=== PATIENT | female | born 1940 | race Caucasian/White ===

== ENCOUNTER 2022-02-19 12:57 | Outpatient (CLI) | payer MEDICARE, SELFPAY | END 2022-02-19 12:58 | disposition home or self-care (01) | LOC: ANHAUDIO 12:59 | PROVIDERS: PCP Internal Medicine; Visit Provider Otolaryngology | DX: H91.90 Unspecified hearing loss, unspecified ear (principal) | CPT/HCPCS: 92557; 92567 ==

== ENCOUNTER 2022-08-17 09:50 | Emergency (ER) | payer MEDICARE, SELFPAY ==
[2022-08-17 09:56] VITALS: BP 154/58; PULSE 72; RESP 18; TEMP 36.1; O2SAT 100
[2022-08-17 10:21] VITALS: BP 157/81; PULSE 73; RESP 20; O2SAT 99
--- NOTE | 2022-08-17 10:25 | ED.BACK ---
HPI - Back Pain/Injury General Chief Complaint: Back Pain/Injury Stated Complaint: back pain/injury Time Seen by Provider: 08/17/22 10:03 History of Present Illness HPI Narrative: Patient is an 82-year-old female here for evaluation of acute on chronic low back pain. Patient tells me that she has dealt with sciatica over the past 10 years. She has had an L4/L5 fusion in the past by a surgeon in [facility]. Over the past 6 months, her pain has been worse than usual, and she has been working with physical therapy. She states that after her session last week, her pain acutely worsened. Present in her left lower back and radiates down her leg. No trauma to the back. She has been attempting meloxicam, Tylenol, lidocaine patches without relief. She has been able to walk. Reports good relief from Medrol Dosepak in the past. Presents today seeking sooner follow-up, she has an appointment with the denture contour wire specialist in January but states she cannot wait that long. No incontinence or retention of bowel or bladder, saddle anesthesia, history of malignancy, weight loss, fevers or chills, history of IV drug use. Related Data Home Medications Medication Instructions Recorded Confirmed acyclovir 800 mg tablet 800 mg PO .PRN 08/12/21 08/12/21 allopurinol 100 mg tablet 100 mg PO TID 08/12/21 08/12/21 aspirin 81 mg tablet,delayed 81 mg PO DAILY 08/12/21 08/12/21 release (Adult Low Dose Aspirin) cyanocobalamin (vitamin B-12) 100 mcg subcut MONTHLY 08/12/21 08/12/21 1,000 mcg/mL injection solution ergocalciferol (vitamin D2) 1,250 1,250 mcg PO WEEKLY 08/12/21 08/12/21 mcg (50,000 unit) capsule gabapentin 300 mg capsule 300 mg PO DAILY 08/12/21 08/12/21 levothyroxine 75 mcg tablet 75 mcg PO DAILY 08/12/21 08/12/21 lisinopril 20 mg tablet 20 mg PO DAILY 08/12/21 08/12/21 omeprazole 20 mg capsule,delayed 20 mg PO BID 08/12/21 08/12/21 release Allergies Allergy/AdvReac Type Severity Reaction Status Date / Time latex Allergy Unknown RASH/SWELLI Verified 08/12/21 10:13 NG morphine Allergy Unknown RASH Verified 08/12/21 10:13 codeine AdvReac Unknown N/V Verified 08/12/21 10:13 Review of Systems Review of Systems: Gen.: Denies fevers or chills Eyes: Denies eye pain or visual change ENT: Denies congestion Respiratory: Denies shortness of breath or cough CV: Denies chest pain or palpitations GI: Denies abdominal pain nausea, emesis or diarrhea denies burning, urgency, frequency or hematuria Musculoskeletal: Reports low back pain. Neuro: Denies numbness, tingling, weakness or focal weakness Skin: Denies rash Except as documented, all other systems reviewed and negative PMFSH Past Medical History Medical History Allergies Fibromyalgia GERD (gastroesophageal reflux disease) Hypertension Spinal stenosis TIA (transient ischemic attack) Social History Social History (Updated 08/12/21 @ 10:20 by Shalonda Armstrong MA) Smoking status: Never smoker Alcohol intake: never Substance use: never Exam Narrative: APPEARANCE: Well appearing, no pain in distress, well-nourished. Head: Normocephalic and atraumatic. EYES: PERRLA/EOMI, conjunctivae clear NOSE: No nasal drainage EARS: External ear normal in appearance THROAT: Oropharynx is clear. Mucous membranes are moist. NECK: Supple. No adenopathy, no masses. RESPIRATORY: Airway patent, respirations nonlabored. Clear to auscultation bilaterally, no rales, rhonchi, wheezing. CARDIOVASCULAR: Regular rate and rhythm without murmurs, rubs, or gallops. ABDOMINAL: Normoactive bowel sounds. Soft, nontender, nondistended. No rebound tenderness or guarding. MUSCULOSKELETAL: No midline tenderness to palpation along C, T or L-spine. Straight leg raise positive on the left. NEURO: Normal speech. No focal neurologic deficits. SKIN: Skin is warm and dry. No rashes. PSYCHIATRIC: Normal affect/mood. Course Vital Signs Vital si
[2022-08-17 10:43] VITALS: BP 157/81; PULSE 67; RESP 18; O2SAT 96
== END 2022-08-17 10:45 | disposition home or self-care (01) ==
LOC: ANHED 10:27
PROVIDERS: Emergency Provider Physician Assistant; PCP Internal Medicine
DX: M54.40 Lumbago with sciatica, unspecified side (principal); I10 Essential (primary) hypertension; K21.9 Gastro-esophageal reflux disease without esophagitis; M79.7 Fibromyalgia; Z98.1 Arthrodesis status; Z86.73 Personal history of transient ischemic attack (TIA), and cerebral infarction without residual deficits; Z79.82 Long term (current) use of aspirin
CPT/HCPCS: 99283

== ENCOUNTER 2024-03-28 13:20 | Outpatient (CLI) | payer MEDICARE, SELFPAY ==
[2024-03-28 14:29] LABS: Anion Gap 11 mmol/L (4-12); Blood Urea Nitrogen 34 mg/dL (7-17); Calcium 9.4 mg/dL (8.4-10.2); Carbon Dioxide 27 mmol/L (22-30); Chloride 102 mmol/L (98-107); Estimated Glomerular Filt Rate 48; Glucose 101 mg/dL (65-110); Potassium 4.6 mmol/L (3.4-5.0); Sodium 140 mmol/L (137-145)
== END 2024-03-28 13:21 | disposition home or self-care (01) ==
PROVIDERS: Anesthesiology; PCP Internal Medicine; Visit Provider Obstetrics & Gynecology
DX: Z51.81 Encounter for therapeutic drug level monitoring (principal); Z79.899 Other long term (current) drug therapy
CPT/HCPCS: 36415; 80048

== ENCOUNTER 2024-03-30 00:17 | Day surgery (SDC) | payer MEDICARE, SELFPAY ==
[2024-03-24 15:41] VITALS: BMI 43.7
--- NOTE | 2024-03-24 16:10 | PC.NURSE ---
Report to the Outpatient Waiting Room, entrance under the green pavilion located off [facility], at time ___08:30am____ on date __03/30/24 . Planned Procedure Time: ___10:30am . Time changes happen often and if your time is changed the preop area will call you the afternoon before. - You and your visitor will be asked to self-screen and do not enter if you have any COVID symptoms. - A mask is optional within the hospital at this time. Patients may have clear liquids (water, carbonated beverages, clear teas, apple juice) until 3 hours (07:30am) prior to surgery with a maximum of 20 ounces. - No food from midnight until time of surgery Take the following medications with a SIP of water the morning of surgery: _ Gabapentin, and Levothyroxine DO NOT STOP ANY OF YOUR OTHER PRESCRIPTION MEDICATIONS PRIOR TO SURGERY ?EXCEPT THE FOLLOWING Medications to discontinue per physician Hold all Vitamins, supplements, probiotics, and herbs 3 days prior Date to take last dose___03/26/24 Please no make-up, nail lao, hairspray, perfume, deodorant, or body powder the day of surgery. No jewelry (including any body piercings) or valuables the day of surgery, leave them at home. Please take a shower or bath the night before, or the morning of, surgery with an antibacterial soap. Wear comfortable, loose fitting clothing. - Jewelry must be removed prior to entering the operating room. Rings and piercings that are not removed may be cut off. - The hospital will not accept responsibility for valuables. - Please leave all valuables, including medications, at home the day of surgery. If you are going home after surgery, a licensed river driver must drive you home. - NO public transportation without another adult if you receive anesthesia. - We recommend that an adult stay with you for 24 hours following discharge. - We also recommend that you do not drive, make important decision, drink alcoholic beverages, or take any drugs that were not prescribed by your health care provider for at least 24 hours after your discharge time. Follow any additional instructions given to you from your surgeon. If you or anyone in your household have experienced Covid symptoms in the past week, please notify your surgeon or the nurse liaison at the phone number below for possible testing. Telephone instructions given to _patient and asked if any additional questions and then verbalized understanding. Patient advised to call surgeon office or pre surgery nurse liaison [phone] if any additional questions.
[2024-03-30 06:08] VITALS: BP 121/63; PULSE 72; RESP 20; TEMP 36.6; O2SAT 97
--- NOTE | 2024-03-30 06:19 | SUR.PREOP ---
0555-Patient states she has advanced directive/DNR and forgot to bring it with her today. States for today's elective procedure, she desires full resuscitation efforts if indicated.
[2024-03-30] MEDS: ACETAMINOPHEN 500 MG TABLET 1000 MG PO (06:25)
[2024-03-30] MEDS: LACTATED RINGERS 1,000 ML 30 ML IV CONT (06:26)
--- NOTE | 2024-03-30 07:06 | WPDANESEPPF ---
Anes - Initial Pre Proc Eval Procedure: Operation Date: 03/30/24 07:30 Proposed Procedures p Hysteroscopy Dilation and Curettage - Umang Landeros MD Date/Time: 03/30/24 07:06 Surgeon: mUang Landeros MD Pre Op Diagnosis: Post Menopausal Bleeding Patient Data Age: 83 Gender: F Height: 1.47 m Weight: 92.4 kg Last Vital Signs Temp 97.9 F 03/30/24 06:08 Pulse 72 03/30/24 06:08 Resp 20 03/30/24 06:08 BP 121/63 03/30/24 06:08 Pulse Ox 97 03/30/24 06:08 O2 Del Method Room Air 03/30/24 06:08 Allergies Allergy/AdvReac Type Severity Reaction Status Date / Time latex Allergy Intermediate RASH/SWELLI Verified 03/30/24 06:06 NG morphine Allergy Intermediate RASH Verified 03/30/24 06:06 codeine AdvReac Intermediate N/V Verified 03/30/24 06:06 Home Medications Medication Instructions Recorded Confirmed Type acyclovir 800 mg tablet 800 mg PO .PRN 08/12/21 03/24/24 History allopurinol 100 mg tablet 100 mg PO TID 08/12/21 03/30/24 History aspirin 81 mg tablet,delayed 81 mg PO DAILY 08/12/21 03/30/24 History release (Adult Low Dose Aspirin) cyanocobalamin (vitamin B-12) 100 mcg subcut MONTHLY 08/12/21 03/30/24 History 1,000 mcg/mL injection solution ergocalciferol (vitamin D2) 1,250 1,250 mcg PO WEEKLY 08/12/21 03/30/24 History mcg (50,000 unit) capsule gabapentin 300 mg capsule 300 mg PO TID 08/12/21 03/30/24 History levothyroxine 75 mcg tablet 75 mcg PO DAILY 08/12/21 03/30/24 History lisinopril 20 mg tablet 20 mg PO DAILY 08/12/21 03/30/24 History omeprazole 20 mg capsule,delayed 20 mg PO BID 08/12/21 03/30/24 History release calcium carbonate (Calcium 600) 1,200 mg PO DAILY 03/24/24 03/30/24 History furosemide 20 mg tablet 20 mg PO DAILY 08/15/24 08/21/24 History magnesium 250 mg tablet 250 mg PO DAILY 03/24/24 03/30/24 History Patient hx anesthesia problems: none Family hx anesthesia problems: none Results Review: All pre-operative results and documents have been reviewed as part of the pre-operative evaluation. [facility] Past Medical History Medical History Allergies Fibromyalgia GERD (gastroesophageal reflux disease) Hypertension Spinal stenosis TIA (transient ischemic attack) Social History Social History Smoking status: Never smoker Alcohol intake: never Substance use: never Living arrangements: alone Spiritual care concerns: No Anes - Eval Final PreProcedure Day of Procedure 03/30/24 07:06 Patient weight: morbidly obese Heart: regular rate and rhythm Lungs: clear to auscultation Airway: Mallampati scale Neurological: alert and oriented Last oral intake: >/= 8 hours ASA classification: II Emergent: no Anesthetic plan: proceed Anesthesia type and monitoring: general GIVS and standard monitoring Results Review: All pre-operative results and documents have been reviewed as part of the pre-operative evaluation. HTN, hypothyroidism, pt w chronic back pain and nerve stim that is turned off. Informed Consent: The patient's anesthetic plan and its attendant risks and benefits were discussed with the patient/family/POA. Questions were solicited and answers provided to the satisfaction of the patient/family/POA.
--- NOTE | 2024-03-30 07:09 | WPDHPUPDATE1 ---
History and Physical Update Update Date/Time: 03/30/24 07:09 History and Physical has been reviewed, including an updated exam of the patient. There are NO changes in the patient's condition. Risks, benefits, and alternatives have been discussed and questions answered. Patient agrees to proceed with procedure.
--- NOTE | 2024-03-30 07:12 | PM.IMHP ---
H&P: HPI History of Present Illness Date/Time: 03/30/24 07:12 Chief Complaint: Vaginal bleeding Narrative: this patient is a an 83-year-old female with postmenopausal bleeding. We have agreed to perform hysteroscopy D&C The patient understands the details of the procedure. The procedure has been explained in detail. She understands the risks. She understands that injuries may occur that result in hospitalization, more surgery, and severe illness. She understands risk of hemorrhage and infection. She denies any chest pain or shortness of breath. She denies any nausea, vomiting, fever, chills. Review of Systems Review of Systems: All systems reviewed & are unremarkable except as noted in HPI and below Constitutional: Constitutional: Denies chills, Denies fatigue, Denies fever(s) and Denies weakness Eyes: Eyes: Denies blurry vision, Denies change in vision, Denies loss of peripheral vision, Denies loss of vision, Denies other visual disturbances and Denies eye pain ENT: Denies vertigo, Denies dizziness, Denies hearing loss, Denies mouth pain, Denies nasal obstruction, Denies neck mass and Denies neck pain Cardiovascular: Cardiovascular: Denies chest pain, Denies diaphoresis, Denies syncope, Denies leg edema and Denies dyspnea Respiratory: Respiratory: Denies chest congestion, Denies cough, Denies hemoptysis, Denies dyspnea and Denies wheezing Gastrointestinal: Gastrointestinal: Denies abdominal pain, Denies constipation, Denies diarrhea, Denies nausea and Denies vomiting Genitourinary: Genitourinary: Denies hematuria, Denies change in libido, Denies nocturia, Denies genital lesions, Denies flank pain and Denies urinary urgency Musculoskeletal: Musculoskeletal: Denies abnormal gait, Denies back pain, Denies myalgias, Denies arthralgias, Denies joint swelling, Denies muscle weakness and Denies neck pain Integumentary/Breasts: Skin/Breast: Denies swelling, Denies breast pain, Denies breast mass, Denies dry skin, Denies nipple discharge, Denies unusual bruising and Denies jaundice Neurologic: Denies Neuro-related abnormal movements, Denies Abnormal speech present, Denies abnormal gait, Denies behavioral changes, Denies confusion, Denies vertigo, Denies dizziness, Denies syncope, Denies loss of vision, Denies memory loss, Denies convulsions and Denies weakness Psychiatric: Psychiatric: Denies abnormal sleep pattern, Denies behavioral changes, Denies change in libido, Denies confusion, Denies depression, Denies anhedonia and Denies memory loss Endocrine: Endocrine: Reports no additional endocrine complaints, Denies change in libido and Denies fatigue Hematologic/Lymphatic: Hematologic/Lymphatic: Reports no additional hematologic/lymphatic complaints Allergic/Immunologic: Allergic/Immunologic: Reports no additional allergic/immunologic complaints and Denies wheezing PMFSH Past Medical History Medical History Allergies Fibromyalgia GERD (gastroesophageal reflux disease) Hypertension Spinal stenosis TIA (transient ischemic attack) Social History Social History Smoking status: Never smoker Alcohol intake: never Substance use: never Living arrangements: alone Spiritual care concerns: No Meds Home Medications and Allergies Home Medications Medication Instructions Recorded Confirmed Type acyclovir 800 mg tablet 800 mg PO .PRN 08/12/21 03/24/24 History allopurinol 100 mg tablet 100 mg PO TID 08/12/21 03/30/24 History aspirin 81 mg tablet,delayed 81 mg PO DAILY 08/12/21 03/30/24 History release (Adult Low Dose Aspirin) cyanocobalamin (vitamin B-12) 100 mcg subcut MONTHLY 08/12/21 03/30/24 History 1,000 mcg/mL injection solution ergocalciferol (vitamin D2) 1,250 1,250 mcg PO WEEKLY 08/12/21 03/30/24 History mcg (50,000 unit) capsule gabapentin 300 mg capsule 300 mg PO TID 08/12/21
[2024-03-30] MEDS: LIDOCAINE HCL 1% LOCAL INJ 20 ML VIAL 10 ML INFILTRATE (07:18)
[2024-03-30 08:03] VITALS: BP 101/47; PULSE 66; RESP 12; O2SAT 93
--- NOTE | 2024-03-30 08:10 | P.OP_ITS ---
Procedure Note - Detailed Date of Procedure 03/30/24 Pre-op Diagnosis Post Menopausal Bleeding Post-op Diagnosis Same Procedure Performed Hysteroscopy D&C Surgeon Umang Landeros MD Anesthesia MAC Indications abnormal uterine bleeding Findings Two endometrial polyps. Each about 8 mm. Normal vulva, vagina, cervix. Description of Procedure the patient was taken the operating room. She was prepped and draped in the dorsal lithotomy position after induction of mac anesthesia. A speculum was placed in the vagina. The cervix was grasped with a tenaculum. The cervix was dilated about 1 cm. The hysteroscope was inserted. The intrauterine cavity and endocervix were evaluated. Hysteroscope was withdrawn. A medium-size curette was used to curettage all the surfaces were within the endometrial cav ity. the sample was collected on Telfa and sent to pathology. The hysteroscope was reinserted and the above findings were noted. a motorized rotary blade was then used to resect 2 polyps within the intrauterine cavity. Patient tolerated the procedure well. The speculum and tenaculum were removed. She was taken recovery room in stable condition. Sponge lap and needle counts were correct x2. Estimated Blood Loss 10 Drains No Packing No Pathology Yes Complications No immediate complications Condition Stable Disposition PACU
[2024-03-30 08:30] VITALS: BP 119/57; PULSE 66; RESP 20
[2024-03-30 08:45] VITALS: BP 127/53; PULSE 63; RESP 20
== END 2024-03-30 08:50 | disposition home or self-care (01) ==
PROVIDERS: PCP Internal Medicine; Visit Provider Obstetrics & Gynecology
PROC: 0U5B8ZZ Destruction of Endometrium, Via Natural or Artificial Opening Endoscopic (ICD-10-PCS; CPT 58563; principal; 2024-03-30 07:30)
DX: N84.0 Polyp of corpus uteri (principal); I10 Essential (primary) hypertension; K21.9 Gastro-esophageal reflux disease without esophagitis; M48.00 Spinal stenosis, site unspecified; E66.01 Morbid (severe) obesity due to excess calories; Z68.41 Body mass index [BMI] 40.0-44.9, adult; Z79.82 Long term (current) use of aspirin; Z86.73 Personal history of transient ischemic attack (TIA), and cerebral infarction without residual deficits
CPT/HCPCS: 58558; 88305; A9270; J1100; J2371; J2405; J2704; J3010; J7120

== ENCOUNTER 2024-10-21 10:48 | Emergency (ER) | payer MEDICARE, SELFPAY ==
[2024-10-21] VITALS (7 sets, daily range): BP systolic 148–202; BP diastolic 61–86; PULSE 62–85; RESP 12–19; TEMP 36.2; O2SAT 93–99
--- NOTE | ~2024-10-21 | CT_ITS ---
EXAMINATION: CTA brain carotid DATE: 10/21/2024 15:04 INDICATION: Vertigo. Transient ischemic attack. TECHNIQUE: Computed tomographic angiography (CTA) of the head was performed with 100 mL Omnipaque-350 intravenous contrast. CTA of the neck was performed with intravenous contrast. Automated exposure co ntrol and iterative reconstruction technique were employed. The dose-length product was 943.44 mGy-cm . Maximum intensity projection and volume rendered 3D-reconstructions were created by the [employer] t on a separate workstation. COMPARISON: Head CT 10/21/2024 FINDINGS: HEAD CTA: There are scattered areas of low attenuation in the cerebral and cerebellar white matter, w hich is within normal limits for the patient's age. There is no intracranial hemorrhage, acute infarc tion, or abnormal intracranial mass lesion. The ventricles are normal in size. There is mucosal thick ening in the paranasal sinuses. There are likely changes of ocular lens replacement surgeries. The ma stoid air cells are normal. The vertebral arteries are codominant. There is no significant stenosis o f basilar artery or the posterior cerebral arteries. There is no significant stenosis of the intracra nial internal carotid arteries or anterior or middle cerebral arteries. Anterior communicating artery is normal. The posterior communicating arteries are normal. There is no aneurysm. NECK CTA: There are no pathologically enlarged lymph nodes. There is no significant stenosis of the v ertebral arteries. There is mild plaque in the proximal internal carotid arteries. There is 0% stenos is of the proximal right internal carotid artery relative to normal distal artery lumen diameter (MEGAN CET criteria). There is 0% stenosis of the proximal left internal carotid artery relative to normal d istal artery lumen diameter. There is severe cervical spondylosis. IMPRESSION: 1. Normal aging brain. 2. No aneurysm or significant intracranial arterial stenosis. 3. 0% stenosis of the proximal internal carotid arteries relative to normal distal artery lumen diame ters (NASCET criteria). Reviewed, dictated and finalized at location L. IMPRESSION: 1. Normal aging brain. 2. No aneurysm or significant intracranial arterial stenosis. 3. 0% stenosis of the proximal internal carotid arteries relative to normal dis justus artery lumen diameters (NASCET criteria).
--- NOTE | ~2024-10-21 | XR_ITS ---
AP view of the pelvis and AP and lateral views of the left hip Clinical history: Pain Findings: No acute fracture or dislocation is seen. Osseous alignment is anatomic. There is minimal d egenerative change of both hip joints. Soft tissues are unremarkable. Impression: No acute abnormality is seen. Minimal degenerative change of both hip joints. Reviewed, dictated and finalized at location . Impression: No acute abnormality is seen. Minimal degenerative change of both hip joints.
--- NOTE | ~2024-10-21 | XR_ITS ---
HISTORY: fall, dizziness COMPARISON: None TECHNIQUE: 3 views of the left ribs were performed along with a PA and lateral radiograph of the ches t. FINDINGS: No acute displaced left rib fracture is appreciated. Bone mineralization is age-appropriate. Dorsal column stimulator device is noted. The remainder of the cardiomediastinal silhouette is otherwise unremarkable. The lungs are clear. IMPRESSION: No acute displaced left-sided rib fracture is identified. The lungs are clear. Reviewed, dictated and finalized at location A.
--- NOTE | ~2024-10-21 | CT_ITS ---
EXAMINATION: CT brain wo con DATE: 10/21/2024 13:22 INDICATION: Dizziness. TECHNIQUE: Computed tomography (CT) of the head was performed without intravenous contrast. The mA wa s adjusted according to patient size. Iterative reconstruction technique was employed. The dose-lengt h product was 605.33 mGy-cm. COMPARISON: Brain MRI 05/02/2015 FINDINGS: There are scattered areas of low attenuation in the cerebral and cerebellar white matter, w hich is within normal limits for the patient's age. There is no intracranial hemorrhage, acute infarc tion, or abnormal intracranial mass lesion. The ventricles are normal in size. There is mucosal thick ening in the paranasal sinuses. There are likely changes of ocular lens replacement surgeries. The ma stoid air cells are normal. IMPRESSION: 1. Normal aging brain. Reviewed, dictated and finalized at location L. IMPRESSION: 1. Normal aging brain.
--- NOTE | 2024-10-21 10:53 | ECG_ITS ---
Test Date: 2024-10-21 11:01:36 Measurements Intervals [place] Rate: 75 P: 41 DE: 145 QRS: -3 QRSD: 89 T: 30 QT: 360 QTc: 404 Interpretive Statements SINUS ARRHYTHMIA VOLTAGE CRITERIA FOR LVH POSSIBLE ANTERIOR MYOCARDIAL INFARCTION , AGE INDETERMINATE Electronically Signed On 10-23-2024 13:48:37 CDT by Sean Stewart D.O
--- OUTSIDE RECORDS SUMMARY | 2024-10-21 11:35 | XMS_ITS | Clinical Summary ---
Author Organization [facility] [address] Address [address] [place] [address] Care Team Providers Care Metal Die Finisher Name Role Phone Albino Bull MD Primary Care Provider [phone] Allergies Active Allergy Reactions Criticality Noted Date Comments Codeine Rash Medium 05/18/2019 hallucinations Latex Urticaria Medium 05/18/2019 Morphine Rash Medium 12/13/2020 Opioids - Morphine Analogues Medications calcium carbonate-jinny min D3 1,500 mg (600mg elemental) -800 unit per tablet Active aspirin 81 mg enteric coated tablet Take 1 tablet (81 mg total) by mouth daily Active magnesium oxide 400 mg magnesium capsule Take 400 mg by mouth daily Active multivit-workers' compensation claims examiner [id number] tablet Take 1 tablet by mouth daily Active omeprazole (PriLOSEC) 40 mg capsule Take 1 capsule (40 mg total) by mouth 2 (two) times a day 180 capsule 2 08/23/19 25 Active lisinopriL (PRINIVIL,ZEST RIL) 20 mg tablet Take 1 tablet (20 mg total) by mouth daily 90 tablet 3 08/23/19 25 Active levothyroxine (SYNTHROID) 75 mcg tablet Take 1 tablet (75 mcg total) by mouth daily 90 tablet 3 08/23/19 25 Active gabapentin (NEURONTIN) 300 mg capsule Take 1 capsule (300 mg total) by mouth 3 (three) times a day 270 capsule 3 08/23/19 25 Active furosemide (LASIX) 20 mg tablet Take 1 tablet (20 mg total) by mouth daily 90 tablet 3 08/23/19 25 Active allopurinoL (ZYLOPRIM) 100 mg tablet Take 1 tablet (100 mg total) by mouth 3 (three) times a day 270 tablet 3 08/23/19 25 Active acyclovir (ZOVIRAX) 800 mg tablet Take 1 tablet (800 mg total) by mouth 2 (two) times a day 180 tablet 3 08/23/19 25 Active cyanocobalamin (Vitamin B-12) 1,000 mcg/mL injection Inject 1cc monthly 3 mL 3 08/23/19 25 Active ergocalciferol (VITAMIN D) 50,000 unit capsule Take 1 capsule (50,000 Units total) by mouth once a week 12 capsule 1 08/23/19 25 Active celecoxib (CeleBREX) 100 mg capsule TAKE 1 CAPSULE BY MOUTH TWICE A DAY 60 capsule 10/10/19 25 Active meclizine (ANTIVERT) 25 mg tablet Take 1 tablet (25 mg total) by mouth 3 (three) times a day as needed for dizziness 30 tablet 10/19/19 25 Active celecoxib (CeleBREX) 100 mg capsule Take 1 capsule (100 mg total) by mouth 2 (two) times a day 60 capsule 09/12/19 25 025 Discontinued Active Problems Problem Noted Date Diagnosed Date Dyspnea on exertion 01/18/2024 Spinal stenosis of lumbar re gion without neurogenic claudication 09/08/2023 Sacroiliitis 05/14/2023 Radiculopathy, lumbosacral region 05/14/2023 Postlaminectomy syndrome, lumbar 05/14/2023 Fibromyalgia 11/18/2021 Assessment & Plan (11/18/2021 1:25 PM CDT): Increase gabapentin 300 tid. Check labs Hypothyroidism 07/15/2021 Essential hypertension 07/15/2021 Hearing loss of right ear 07/15/2021 Arthralgia of shoulder 09/12/2011 Encounters Date Type Department Care Team Description 10/18/2024 [facility] [address] [facility] [address], [place] [address] Albino Bull MD Vertigo 09/12/2024 Telephone [facility] [address] [place] [address] [place] [address] Albino Bull MD Pain 08/24/2024 10:00 AM ACQUISITION EDITOR - 08/24/2024 11:59 PM ACQUISITION EDITOR Hospital Encounter [facility] Rad[facility] ([facility]) [address] [place] [id number] Injury of head, initial encounter Discharge Disposition: Discharge to home or self care 08/24/2024 Telephone [facility] [address] [place] [address] [place] [address] [place] [address] Richelle Soriano NP 08/24/2024 Orders Only [facility] [address] [place] [phone] Richelle Soriano NP Injury of head, initial encounter (Primary Dx) 08/23/2024 5:35 PM ACQUISITION EDITOR Lab [facility] [address] [place] [phone] Fatigue, unspecified type; Urinary frequency; Hypothyroidism, unspecified type; Vitamin D deficiency 08/23/2024 1:30 PM ACQUISITION EDITOR Office Visit [facility] [address] [place] [phone] Richelle Soriano NP GERD without esophagitis (Primary Dx); Essential hypertension; Hypothyroidism, unspecified type; Urinary frequency; Fibromyalgia; Spinal stenosis of lumbar region without neurogenic claudication; Vitamin D deficiency; Fatigue, unspecified type; Injury of head, initial encounter from Last 3 Months Immunizations Immunization Administration Dates Next Due Influenza, Quadrivalent, Hig h Dose, Preservative Free, Intrr 05/18/2019 Influenza, Quadrivalent, Spl it, Preservative Free, Intramuscular 07/27/2015 Influenza, Trivalent, High D ose, Split, Preservative Free, Intramuscular 05/18/2019,06/14/2018,05/18/2017 Influenza, Trivalent, Preser vative Free, Intramuscular 05/09/2013 Influenza, Unspecified 05/18/2019 Pneumococcal Conjugate PCV 13 05/18/2017 Pneumococcal Polysaccharide PPV23 06/23/2006 Surgical History Surgery Date Site/Laterality Comments CHOLECYSTECTOMY FL UPPER GI AIR CONTRAST W KUB 02/16/2023 Left FL UPPER GI AIR CONTRAST W KUB 03/24/2023 Left FL UPPER GI AIR CONTRAST W KUB 04/20/2023 Left APPENDECTOMY CARPAL TUNNEL RELEASE Right TOTAL KNEE ARTHROPLASTY Bilateral SPINAL FUSION 08/10/2009 - 08/09/2010 L4-L5 CATARACT EXTRACTION, BILATERAL Bilateral FOOT NEUROMA SURGERY Right x2 FLUORO GUIDED ASPIRATION OR INJECTION INTERMEDIATE JOINT RIGHT 09/08/2023 Right WRIST FRACTURE SURGERY 08/10/2019 - 08/09/2020 Right plates and screws Medical History Medical History Date Comments Hypertension Gout Arthritis TIA (transient ischemic attack) PONV (postoperative nausea and vomiting) Motion sickness GERD (gastroesophageal reflux disease) Diverticulitis of colon Spasmatic colon Kidney stone Hypothyroidism Stroke (HCC) TIA 1998 x 4 Cataract Occasional tremors Family History Medical History Relation Name Comments COPD Father Heart disease Father Heart disease Mother Relation Name Status Comments Father Mother Social History Tobacco Use Types Packs/Day Years Used Date Smoking Tobacco: Never Smokeless Tobacco: Never Tobacco Cessation:Counseling Given: Not Answered AUDIT-C Answer Date Recorded Q1: How often do you have a drink containing alc ohol? Never 11/04/2023 Average Number of Drinks Not on file 024 Frequency of Binge Drinking Not on file 10/09 Personal Safety Answer Date Recorded Have you ever been in or are you currently in a harmful physical or emotional relationship or is someone making you feel afraid or unsafe? Denies 11/04/2023 Comments No Sex and Gender Information Value Date Recorded Sex Assigned at Not on file Legal Sex Female 11:30 PM ACQUISITION EDITOR Gender Identity Female 01/31/2023 2:08 PM CDT Sexual Orientation Straight 01/31/2023 2: 08 PM CDT Obstetrics History Last Filed Vital Signs Vital Sign Reading Time Taken Comments Blood Pressure 142/82 08/23/2024 1:52 PM ACQUISITION EDITOR Pulse 64 08/23/2024 1:52 PM ACQUISITION EDITOR Temperature 36.5 C (97.7 F) 11/04/2023 3:25 PM CDT Respiratory Rate 18 12/09/2023 1:27 PM CDT Oxygen Saturation 94% 08/23/2024 1:52 PM ACQUISITION EDITOR Inhaled Oxygen Concentration - - Weight 97.1 kg (214 lb) 08/23/2024 1:52 PM ACQUISITION EDITOR Height 147.3 cm (4' 10 ) 08/23/2024 1:52 PM ACQUISITION EDITOR Body Mass Index 44.73 08/23/2024 1:52 PM ACQUISITION EDITOR Plan of Treatment Health Maintenance Due Date Last Done Comments Depression Screening 1940 DTaP/Tdap/Td Vaccine (1 - Tdap) 1952 Hepatitis B Screening 1959 Zoster Vaccine (1 of 2) 1991 Well Visit 65+ 2006 Influenza Vaccine (#1) 2024 9, 05/18/2019, 05/18/2019, Additional history exists Fall Risk Assessment 12/08/2024 12/09/2023 Osteoporosis Screening-Bone Density Scan 03/13/2025 03/13/2023, 12/20/2020 Pneumococcal vaccine 65+ Completed 05/18/2017, 06/10 Medical Devices Implanted Type Area Miter Grinder Operator Device Identifier Shelf Expiration Date Model / Serial / Lot [employer] Vectris 5mm 60cm 1x8 Electrode Mri Lead Neurostimulator [id number] - [id number] Implanted:Qty: 1 on 11/04/2023 by Loc Kramer MD at [facility] Left: Back [employer] 09/29/2027 [id number] / / [id number] Med[employer] Vectris 5mm 60cm 1x8 Electrode Mri Lead Neurostimulator [id number] - [id number] Implanted:Qty: 1 on 11/04/2023 by Loc Kramer MD at [facility] Left: Back [employer] 10/07/2027 [id number] / / [id number] [employer] Neurostimulator Implantable Chronic Pain [id number] - [id number] - [id number] Implanted:Qty: 1 on 11/04/2023 by Loc Kramer MD at [facility] Left: Back [employer] 09/23/2024 [id number] / [id number] / [employer] Envelope Absrb 2.7x2.5in Antibacterial Tyrx Medium Strl [id number] - [id number] Implanted:Qty: 1 on 11/04/2023 by Loc Kramer MD at [facility] Left: Back [employer] 07/21/2024 [id number] / / [id number] Procedures Procedure Name Priority Date/Time Associated Diagnosis Comments CT HEAD WO CONTRAST Schedule Routine, Read Routine (OP Routine) 08/24/2024 10:48 AM ACQUISITION EDITOR Injury of head, initial encounter EGFR Routine 08/23/2024 3:02 PM ACQUISITION EDITOR Fatigue, unspecified type DIFFERENTIAL AUTO Routine 08/23/2024 3:0 2 PM ACQUISITION EDITOR Fatigue, unspecified type CBC WITH AUTO DIFFERENTIAL Routine 08/23/2024 3:02 PM ACQUISITION EDITOR Fatigue, unspecified type COMPREHENSIVE METABOLIC PANEL Routine 08/23/2024 3:02 PM ACQUISITION EDITOR Fatigue, unspecified type VITAMIN D 25 HYDROXY Routine 08/23/2024 3:02 PM ACQUISITION EDITOR Vitamin D deficiency THYROID FUNCTION CASCADE Routine 08/23/2024 3:02 PM ACQUISITION EDITOR Hypothyroidism, unspecified type VITAMIN B12 Routine 08/23/2024 3:02 PM ACQUISITION EDITOR Fatigue, unspecified type URINALYSIS AND REFLEX TO MICROSCOPIC AND CULTURE Routine 08/23/2024 3:02 PM ACQUISITION EDITOR Urinary frequency DEXA AXIAL SKELETON BONE DENSITY 1 OR MORE SITES Schedule Routine, Read Routine (OP Routine) 03/13/2023 9:53 AM CDT Post-menopausal from Last 3 Months or Most Recently Relevant to Health Maintenance Results * CT Head WO Contrast (08/24/2024 10:48 AM ACQUISITION EDITOR) Anatomical Region Laterality Modality Head and Neck N/A Computed Tomogra phy 08/24/2024 11:0 0 AM ACQUISITION EDITOR Impressions 08/24/2024 11:00 AM ACQUISITION EDITOR Subcentimeter calcification within the right midbrain. This could be dystrophic or related to vascular malformation or underlying lesion. Further evaluation with MR brain or correlation with outside prior head CT is recommended. Electronically signed by: Argentina Keenan M.D. Narrative 08/24/2024 11:00 AM ACQUISITION EDITOR EXAMINATION: CT head without contrast HISTORY: Fall 08/03/2024, per EMR notes TECHNIQUE: CT of the head was performed with images acquired from skull base to vertex without intravenous contrast. COMPARISON: None Available. FINDINGS: Subcentimeter calcification within the right midbrain. This could be dystrophic or related to vascular malformation or underlying lesion. Further evaluation with MR brain or correlation with outside prior head CT is recommended. There is no acute intracranial hemorrhage. Ventricles are of normal size and morphology. No mass effect or midline shift is present. The singh-white matter differentiation is normal. The visualized portions of the orbits are normal. The visualized portions of the mastoids are normal. The visualized portions of the paranasal sinuses are normal. No fractures are identified. Procedure Note Argentina Cohn MD - 08/24/2024 EXAMINATION: CT head without contrast HISTORY: Fall 08/03/2024, per EMR notes TECHNIQUE: CT of the head was performed with images acquired from skull base to vertex without intravenous contrast. COMPARISON: None Available. FINDINGS: Subcentimeter calcification within the right midbrain. This could be dystrophic or related to vascular malformation or underlying lesion. Further evaluation with MR brain or correlation with outside prior head CT is recommended. There is no acute intracranial hemorrhage. Ventricles are of normal size and morphology. No mass effect or midline shift is present. The singh-white matter differentiation is normal. The visualized portions of the orbits are normal. The visualized portions of the mastoids are normal. The visualized portions of the paranasal sinuses are normal. No fractures are identified. IMPRESSION: Subcentimeter calcification within the right midbrain. This could be dystrophic or related to vascular malformation or underlying lesion. Further evaluation with MR brain or correlation with outside prior head CT is recommended. Electronically signed by: Argentina Keenan M.D. Richelle Lupe Soriano BRINELL TESTER IMG CT PROCEDURES Final Resul t * (ABNORMAL) eGFR (08/23/2024 3:02 PM ACQUISITION EDITOR) eGFR 51(L) >=60 mL/min/1. 73 m2 Comment: Interpretive Data Reference Interval Normal >/= 90 mL/min/1.73m2 Mildly decreased* 60 - 89 mL/min/1.73m2 Mildly to moderately decreased 45 - 59 mL/min/1.73m2 Moderately to severely decreased 30 - 44 mL/min/1.73m2 Severely decreased 15 - 29 mL/min/1.73m2 Kidney Failure < 15 mL/min/1.73m2 *Relative to young adult level Estimated glomerular filtration rate is determined by the 2020 CKD-EPI equation recommended by the National Kidney Foundation (A Unifying Approach to GFR Estimation: Recommendations of the NKF-ASK Task Force on Reassessing the Inclusion of Race in Diagnosing Kidney Disease, JASN 2020). The CKD-EPI equation should not be used for patients with unstable renal function and has not been validated in children and those over 70. Current interpretive data was last reviewed 2021. Blood 08/23/2024 3:02 PM ACQUISITION EDITOR 08/23/2024 4:35 PM ACQUISITION EDITOR us Richelle Soriano BRINELL TESTER LAB BLOOD ORDERABLES Final Re sult [facility] Department of Laboratories [place], [place] [id number] * (ABNORMAL) Differential, auto (08/23/2024 3:02 PM ACQUISITION EDITOR) Neutrophil abs 5.0 1.5 - 6.5 K/cumm Imm gran abs 0.0 0.0 - 0.1 K/cumm [facility] Lymphocyte abs 3.7(H) 0.8 - 3.3 K/cumm [facility] Monocyte abs 0.7 0.2 - 0.8 K/cumm [facility] Eosinophil abs 0.3 0.0 - 0.5 K/cumm [facility] Basophil abs 0.1 0.0 - 0.1 K/cumm [facility] Neutrophil pct 50.5 % [facility] Comment: Interpretive Data Percent cell count reference ranges are not reported, since discordance with absolute values may lead to misinterpretation of CBC data. Current Interpretive Data was last revised on 2017. Imm gran pct 0.2 % [facility] Comment: Interpretive Data Percent cell count reference ranges are not reported, since discordance with absolute values may lead to misinterpretation of CBC data. Current Interpretive Data was last revised on 2017. Lymphocyte pct 38.1 % [facility] Comment: Interpretive Data Percent cell count reference ranges are not reported, since discordance with absolute values may lead to misinterpretation of CBC data. Current Interpretive Data was last revised on 2017. Monocyte pct 7.4 % [facility] Comment: Interpretive Data Percent cell count reference ranges are not reported, since discordance with absolute values may lead to misinterpretation of CBC data. Current Interpretive Data was last revised on 2017. Eosinophil pct 2.9 % [facility] Comment: Interpretive Data Percent cell count reference ranges are not reported, since discordance with absolute values may lead to misinterpretation of CBC data. Current Interpretive Data was last revised on 2017. Basophil pct 0.9 % [facility] Comment: Interpretive Data Percent cell count reference ranges are not reported, since discordance with absolute values may lead to misinterpretation of CBC data. Current Interpretive Data was last revised on 2017. Blood 08/23/2024 3:02 PM ACQUISITION EDITOR 08/23/2024 4:18 PM ACQUISITION EDITOR us Richelle Soriano BRINELL TESTER LAB BLOOD ORDERABLES Final Re sult [facility] Department [place] [address] * Thyroid Function [place] (08/23/2024 3:02 PM ACQUISITION EDITOR) TSH 2.29 0.30 - 4.20 mcIUnit/mL Blood 08/23/2024 3:02 PM ACQUISITION EDITOR 08/23/2024 4:18 PM ACQUISITION EDITOR Richelle Soriano BRINELL TESTER LAB BLOOD ORDERABLES Final Re sult [place] [facility] [facility] Department [place] [address] * Urinalysis reflex to microscopic and culture Urine (08/23/2024 3:02 PM ACQUISITION EDITOR) Color, ur Straw Yellow Clarity, ur Clear Clear [facility] Specific gravity, ur 1.025 1.003 - 1.030 [facility] pH, urine 5.5 [facility] Comment: Interpretive Data U rine pH is affected by diet, medications, systemic acid-base disturbances, and renal tubular function. pH may affect urinary stone formation. For example, urine pH below 6.0 may help reduce the tendency for calcium phosphate stones and pH greater than 6.0 may reduce the tendency for uric acid stone formation. Source: [facility] Current Interpretive Data was last revised on 2017 Protein, ur ql Trace Negative [facility] Glucose, ur ql Negative Negative [facility] Ketones, ur Negative Negative [facility] Bilirubin, ur Negative Negative [facility] Blood, ur Negative Negative [facility] Urobilinogen, ur <2.0 <2.0 mg/dL [facility] Nitrite, ur Negative Negative [facility] Leukocyte esterase, ur Negative Negative [facility] UA reflex comment Reflex conditions for microscopic UA and culture not met. [facility] Urine 08/23/2024 3:02 PM ACQUISITION EDITOR 08/23/2024 4:18 PM ACQUISITION EDITOR us Richelle Soriano NP LAB MICROBIOLOGY - GENERAL OR DERABLES Final Result [place] [facility] [place] [address] * (ABNORMAL) CBC with auto differential (08/23/2024 3:02 PM ACQUISITION EDITOR) WBC 9.8 3.8 - 9.9 K/cumm Hgb 12.5 11.9 - 15.5 g/dL [facility] Hct 39.7 35.6 - 45.5 % [facility] Plt 248 150 - 400 K/cumm [facility] MPV 13.0(H) 9.1 - 12.3 fL [facility] RBC 4.22 3.90 - 5.20 M/cumm [facility] MCV 94.1 81.3 - 96.4 fL [facility] MCH 29.6 27.1 - 33.3 pg [facility] MCHC 31.5(L) 32.3 - 35.7 g/dL [facility] RDW CV 15.2(H) 11.1 - 14.9 % [facility] RDW SD 52.4(H) 35.7 - 48.1 fL [facility] NRBC abs 0.00 0.00 - 0.01 K/cumm [facility] Blood 08/23/2024 3:02 PM ACQUISITION EDITOR 08/23/2024 4:18 PM ACQUISITION EDITOR Richelle Soriano BRINELL TESTER LAB BLOOD ORDERABLES Final Re sult Performing Organization Address City/[facility]/ZIP Co de Phone Number [facility] [place] [address] * Vitamin D 25 hydroxy (08/23/2024 3:02 PM ACQUISITION EDITOR) [facility] Vitamin D 25-OH 76 30 - 80 ng/mL Blood 08/23/2024 3:02 PM ACQUISITION EDITOR 08/23/2024 4:18 PM ACQUISITION EDITOR Richelle Soriano BRINELL TESTER LAB BLOOD ORDERABLES Final Re sult [facility] [place] [address] * Vitamin B12 (08/23/2024 3:02 PM ACQUISITION EDITOR) [facility] Vitamin B12 846 230 - 1,250 pg/mL Blood 08/23/2024 3:02 PM ACQUISITION EDITOR 08/23/2024 4:18 PM ACQUISITION EDITOR us Richelle Soriano NP LAB BLOOD ORDERABLES Final Re sult [facility] [place] [address] * (ABNORMAL) Comprehensive metabolic panel (08/23/2024 3:02 PM ACQUISITION EDITOR) Pathologist [facility] Sodium 142 135 - 145 mmol/L Potassium, pl 4.5 3.3 - 4.9 mmol/L [facility] Chloride 103 97 - 110 mmol/L [facility] CO2 28 22 - 32 mmol/L [facility] Anion gap 11 2 - 15 mmol/L [facility] BUN 26(H) 6 - 25 mg/dL [facility] Creatinine 1.08 0.60 - 1.10 mg/dL [facility] Glucose 87 70 - 199 mg/dL [facility] Comment: Interpretive Data Fasting glucose >/= 126 mg/dl is diagnostic for diabetes. Fasting is defined as no caloric intake for at least 8 hours. Fasting glucose between 100 mg/dl to 125 mg/dl is diagnostic of prediabetes. In a patient with classic symptoms of hyperglycemia or hyperglycemic crisis, a random glucose >/= 200 mg/dl is diagnostic for diabetes. In the absence of unequivocal hyperglycemia, results should be confirmed by repeat testing. The classification and Diagnosis of Diabetes Diabetes Care 2021; 46: S19-S40. Current interpretive data was last revised 2022. Calcium 9.7 8.5 - 10.3 mg/dL [facility] Bilirubin, total 0.3 0.1 - 1.2 mg/dL [facility] Protein, pl 7.7 6.5 - 8.5 g/dL [facility] Albumin 4.5 3.5 - 5.0 g/dL [facility] Alk phos 112 40 - 130 Units/L [facility] ALT 12 7 - 45 Units/L [facility] AST 21 10 - 45 Units/L [facility] Blood 08/23/2024 3:02 PM ACQUISITION EDITOR 08/23/2024 4:18 PM ACQUISITION EDITOR us Richelle Soriano BRINELL TESTER LAB BLOOD ORDERABLES Final Re sult [place] [facility] [place] [address] * Dexa Axial Skeleton Bone Density 1 or 2 Site (03/13/2023 9:53 AM CDT) Anatomical Region Laterality Modality Body N/A Radiographic Liz ging Narrative 03/16/2023 8:19 AM CDT Patient Name: Malathi Sanchez Date of : 1940 Date of scan: 03/13/2023 Bone mineral density was performed on a HoloInnoPad Discovery Densitometer. Based on machine cross-calibration and precision studies the least significant changes of this densitometer is 0.024 g/cm2 at the spine, 0.020 g/cm2 at the total proximal femur, and 0.014g/cm2 at the forearm. HISTORY: This is a 82 y.o. postmenopausal female with a history of low bone mass and thyroid disease. She reports that she has never smoked. She does not have any smokeless tobacco history on file. Currently on treatment with calcium, vitamin D, and thyroid hormone, previously treated with diuretics, and current complaint of back pain and leg pain. INDICATIONS: Menopause status, history of prior wrist fracture, vitamin D deficiency, and history of low bone mass. FINDINGS: BONE MINERAL DENSITY OF THE LUMBAR SPINE Bone Mineral Density (BMD) of the lumbar spine was measured from L1-L3 and the average density was calculated to be 1.423 gm/cm2. This corresponds to a T-score (standard deviations from the mean of young adults) of 3.7. There is no previous study available for comparison. BONE MINERAL DENSITY OF THE PROXIMAL FEMUR Bone Mineral Density (BMD) of the left hip total was found to be 0.993 gm/cm2. This corresponds to a T-score standard deviations from the mean of young adults of 0.4. Femoral neck is 0.719 gm/cm2 with a T-score (standard deviations from the mean of young adults) of -1.2. There is no previous study available for comparison. SUMMARY: Bone mineral density shows evidence of low bone mass at the proximal femur and moderately increased fracture risk (Osteopenia). L4 excluded from bone mineral density analysis of the lumbar spine because of the presence of surgical hardware. ADDITIONAL COMMENTS: Postmenopausal Women and Men Over 50: Diagnostic criteria: Osteoporosis: BMD at or below -2.5 T-score; Osteopenia (low bone mass): BMD between -1.0 and -2.5 T-score. If the patient has a history of a fragility fracture, a fracture that occurred with trauma equivalent to a fall from a standing position or less, then the diagnosis is osteoporosis regardless of bone density. The history and data sections of the bone mineral density scan were prepared by Patricia Giron (R)(CBDT) who is accredited by the International Society of Clinical Densitometry. The overall patient assessment and scan interpretation were performed by Oralia Vasquez M.D. who is certified by the International Society of Clinical Densitometry. [id number] Albino Bull MD IMG DXA PROCEDURES Final Resu lt from Last 3 Months or Most Recently Relevant to Health Maintenance Insurance [facility] MEDICARE MEDICARE [facility] MEDICARE [facility] MEDICARE [facility] Care Teams Metal Die Finisher Relationship Specialty Start Date End Date Albino Bull MD [address] [facility] [address] [place] [address] PCP - General Internal Medicine 12/12/20
--- OUTSIDE RECORDS SUMMARY | 2024-10-21 11:35 | XMS_ITS | Data Portability ---
Author Organization [facility] [place] Address [address] [place] [address] [place] [address] Assessment No assessment recorded. Plan of Treatment Reminders Order Date Submit Date Provider Last Modified By Organization Details Last Modified Time Details Appointments None recorded. Lab None recorded. Referral None recorded. Procedures None recorded. Surgeries None recorded. Imaging US, pelvis 2023 [email or web address], [address], [place], [address], 22:31:29 US, transvagina l [email or web address], [address], [address], [place], [address], 22:31:29 US, pelvis, complete 2023 024 [facility] [place], [address], [address], [place], [address], 05:00:55 Medication Orders None recorded. Patient TargetsNo targets recorded. Patient InstructionsNo instructions recorded. Reason for Referral None Reported. Results Created Date Observation Date Name Description Value Unit Range Abnormal Flag Note LastModifiedBy Organization Detail LastModifiedTime 12/08/19 24 12/08/2023 , billy reyes No observ ation record ed. [email or web address] [place] [address], [place], [address], 12/08/2023 16:02:30 12/08/19 24 12/08/2023 US, trans vagin al No observ ation record ed. [email or web address] [place] [address], [place], [address], 12/08/2023 16:02:17 12/08/19 24 12/08/2023 US, pelvi s No observ ation record ed. [email or web address] [address], [place], [address], 12/09/2023 14:08:52 Result Notes None recorded. Procedures Surgical History Date Name Laterality Status Provider Name and Address Organization Details Recorded Time 024 DILATION AND CURETTAGE WITH HYSTEROSCOPY (SURG) completed [facility] 03/30/2024 09:21:26 024 procedure on back [facility] 12/18/2023 10:43:35 970 Cholecystectomy completed [facility] 11/30/2023 10:41:38 970 Appendectomy completed [facility] 11/30/2023 10:41:49 Dilation and Curettage completed YAW Ingram [address], [place], [address], [facility] 11/30/2023 12:47:38 Imaging Results Imaging Date Name Status LastModified by Organization Details LastModified Time 12/08/2023 US, pelvis completed [email or web address] [place] [address], [place], [address], 12/08/2023 16:02:30 12/08/2023 US, transvaginal completed [email or web address] [facility] [address], [place], [address], 12/08/2023 16:02:17 12/08/2023 US, pelvis completed [email or web address] [address], [place], [address], 12/09/2023 14:08:52 Procedure Notes None recorded. Medical Equipment None Reported. Allergies Allergen ID Allergen Name Allergen Category Reaction Reaction Severity Criticality Documentation Date Start Date Code Code System Note Provider Name and Address Organization Details Recorded Time 86068 latex environme nt,medica tion Not available Not available Not available 11/30/2023 92664 91 [facility] 10:22:38 87314 codeine medicatio n Not available Not available Not available 11/30/2023 2670 [facility] 10:23:00 99078 morphine medicatio n Not available Not available Not available 11/30/2023 7052 RxNorm Trinidad berumen, [facility] 4 10:23:09 Medications Name Sig Start Date Stop Date Status Note LastModified by Organization Details LastModified Time lisinopril 20 mg tablet Take 1 tablet every day by oral route. active Not Available Not Available No t Available allopurinol 100 mg tablet Take 3 tablets every day by oral route. active Not Available Not Available No t Available acyclovir 800 mg tablet Take 1 tablet 5 times a day by oral route for 10 days. 12/17 completed Not Available Not Available Not Available levothyroxi ne 75 mcg tablet Take 1 tablet every day by oral route. active Not Available Not Available No t Available gabapentin 300 mg capsule Take 1 capsule 3 times a day by oral route. active Not Available Not Available No t Available omeprazole 20 mg capsule,del ayed release Take 2 capsules every day by oral route. active Not Available Not Available No t Available Vitamin D2 1,250 mcg (50,000 unit) capsule Take by oral route. active Not Available Not Available No t Available Asprin Ec Low Dose 81 mg tablet,sander yed release Take 1 tablet every day by oral route. active Not Available Not Available No t Available vitamin A50-outpk acid injection solution Take every month by injection route. active Not Available Not Available No t Available Lasix 04/08 completed Not Available Not Available Not Available calcium 1,000 mg (as calcium carbonate 2,500 mg) effervescen t tablet Take by oral route. active Not Available Not Available No t Available Vitals Date Recorded Body height Body mass index (BMI) Body weight Systolic blood pressure Diastolic blood pressure Systolic blood pressure Diastolic blood pressure Provider Name and Address Organization Details Last Updated DateTime 144.78 cm 47.4 kg/m2 83122.7 3 g 174 mm[Hg] 70 mm[Hg] 170 mm[Hg] 82 mm[Hg] Trinidad Nogueira [facility] 11:33:43 Date Recorded Body height Body mass index (BMI) Body weight Systolic blood pressure Diastolic blood pressure Provider Name and Address Organization Details Last Updated DateTime 12/18/2023 144.78 cm 47.8 kg/m2 445018.9 1 g 114 mm[Hg] 68 mm[Hg] Chelsie Marge [facility] 4 10:42:40 Date Recorded Body height Body mass index (BMI) Body weight Systolic blood pressure Diastolic blood pressure Provider Name and Address Organization Details Last Updated DateTime 2024 144.78 cm 46.5 kg/m2 85794.36 g 133 mm[Hg] 69 mm[Hg] Zehra Gutierrez [facility] 4 11:58:41 Social History Question Answer Notes LastModified by Organizat ion Details LastModified Time Tobacco Smoking Status Never Smoker Trinidad Nogueira null, [facility] 11/30/2023 10:30:02 What Is Your Level Of Alcohol Consumption? [email or web address] Information not available 11/30/2023 In The 14 Days Before Symptom Onset, Have You Had Close Contact With A Laboratory-confirm ed COVID-19 While That Case Was Ill? No [email or web address] Information n ot available 11/30/2023 In The 14 Days Before Symptom Onset, Have You Had Close Contact With A Person Who Is Under Investigation For COVID-19 While That Person Was Ill? No [place] [address] Information not available 11/30/2023 Have You Been To An Area Known To Be High Risk For COVID-19? No [place] [address] Information not available 11/30/2023 Sex: Unknown Functional Status None recorded. Mental Status None recorded. Family History Relationship Description Onset Age of this Age Resolved Age Notes LastModified by Organization Details LastModified Time Mother Heart disease [place] [address] Not available 2023 10:28:57 Sister Heart disease [email or web address] Not available 2023 10:29:12 Father Hypercholest erolemia [email or web address] Not available 2023 10:29:39 Father Hypertensive disorder [email or web address] Not available 2023 10:29:49 Medical History Condition Response Other Y Fibromyalgia Y Deep Vein Thrombosis Y Thyroid Problems Y Hypertension Y GI Problems Y Gynecological History Statement/Question Response Sexually Active? N On BCP's at Conception? N STIs/STDs N Menses Monthly N Age of first menstrual cycle 10 HPV Vaccine N Date of Last Pap Smear Sexual Problems? N Current Control Method Menopause Age at First Child 24 Obstetrics History GPAL:G 2 P 0 0 0 2 Type Value Living 2 Total 2 Past Encounters Encounter ID Performer Location Encounter Start Date Encounter Closed Date Diagnosis/Indication Diagnosis SNOMED-CT Code Diagnosis ICD10 Code Diagnosis Note [id number] Y[facility] In[facility] [place] [address] [address] 11/30/2023 09:49:22 11/30/2023 13:33:00 Postmenopausal bleeding 25394360 N95.0 Detailed health hx obtained and reviewed todaydiscu ssed postmenopa usal bleeding which warrants further evaluation pelvic u/s scheduledd iscussed further testing that may be needed pending u/squestio ns answered, pt verbalized understand ing, precaution s reviewedsc heduled to return for u/s - will reach out to patient with results/ne xt stepsBP precaution s reviewed, encouraged to take medication as prescribed and f/u with PCP Time spent in visit is a total of 30 mins with at least 50% of visit consisting of counseling and review of plan of care. [id number] Josephine Antonio [place] [address] [address] 12/08/2023 15:00:49 12/08/2023 16:17:41 Postmenopausal bleeding 84070208 N95.0 [id number] Umang Landeros MD [place] [address] [address] 12/18/2023 10:17:26 12/18/2023 11:09:23 Postmenopausal bleeding 91896241 N95.0 this patient is an 83-year-ol d female with postmenopa usal bleeding. We have agreed to perform hysterosco py D&C. She understand s risks, benefits, and alternativ es. She is completed the informed consent process is risks proceed. We spent over 40 minutes face-to-fa ce. We made a decision to perform surgery. More than 50% of our meeting was counseling . [id number] Umang Landeros MD [place] [address] [address] 2024 11:14:07 2024 12:31:25 Postmenopausal bleeding 82732453 N95.0 84-year-ol d P female presents for post up follow-up. She underwent hysterosco py D&C. Polyps were removed. ECC and endometria l curettage were performed. All the samples were benign. We will observe for more bleeding. She will contact us if there are any problems. Health Concerns Section Related Observation LastModified by Organization Detai ls LastModified Time None Recorded Concern Status LastModified by Organization Details LastModified Time None Recorded Advance Directives Directive None Recorded Payers Encounter Date Sequence Insurance Name Policy Number Policy Rubio Covered Member ID Rubio Member ID Guarantor Name 11/30/2023 2 [employer] (MEDICARE SUPPLEMENT) Malathi Sanchez [id number] Malathi Sanchez 11/30/2023 1 [place] Mal[place] Sanchez [id number] Malathi Sanchez 12/08/2023 2 [employer] (MEDICARE SUPPLEMENT) Malathi Sanchez [id number] Malathi Sanchez 12/08/2023 1 [place] Malathi Sanchez [id number] Malathi Sanchez 12/18/2023 2 [employer] (MEDICARE SUPPLEMENT) Malathi Sanchez [id number] Malathi Sanchez 12/18/2023 1 [place] Malathi Sanchez [id number] Malathi Sanchez 2024 2 [employer] (MEDICARE SUPPLEMENT) Malathi Sanchez [id number] Malathi Sanchez 2024 1 [place] Malathi Sanchez [id number] Malathi Sanchez Notes Date Note Type Note Provider Name and Address Organization Details Recorded Time 4 text/htm l 83yo [id number] for postmenopausal bleedingpostmenopausal since around age 503 months ago had an episode of vaginal bleeding that lasted about 4 days, enough to have to wear pads with some clots. Experienced again 2 months ago - light spotting x 2 days. No bleeding since, no current vaginal bleeding.Not Darnell h/o abnormal papsneg n/v/fneg flu-like symptomsneg vaginal d/c, odors, itching, dryness, or pain Did not take HTN medication this morning, feeling well/no symptoms, monitors BP at home YAW Ingram [address], [place], [address], [facility] 11/30/2023 12:52:58 4 text/htm l This patient is an 83-year-old female who had an episode of postmenopausal bleeding. She has a thickened endometrium on ultrasound. We discussed sampling the endometrium. I gave her options regarding endometrial biopsy or hysteroscopy D&C. We discussed for a while. I recommended hysteroscopy D and C at the hospital. She understands the procedure. The patient understands the procedure. The procedure was described to the patient in great detail. the patient also understands the risks. The risks were also explained in detail. She understands that injuries May occur during surgery. She understands these injuries can result in hospitalization, more surgery, and severe illness. She understands there is risk of hemorrhage and infection. Umang Landeros MD [address], [place], [address], [facility] 12/18/2023 11:06:01 4 text/htm l 84-year-old P female presents for post up follow-up. She underwent hysteroscopy D&C. Polyps were removed. ECC and endometrial curettage were performed. All the samples were benign. We will observe for more bleeding. She will contact us if there are any problems. Umang Landeros MD [address], [place], [address], [facility] 2024 12:27:31 OBGyn Episode Ob Episode Information Episode Created Date Number of Fetuses Patient Bloodtype Patient rh Status Prepregnancy Weight lbs Domestic Partner Domestic Partner Phone Father Name Wood Fence Erector Status 11/30/19 24 1 CLOSED Fetus Data First Name Last Name Admitted to NICU Weight (g) Sex Living Outcome Pediatric Complications Fetus ID Race Codes Race Delivery Type M Full Term [id number] Vaginal Delivery Timothy Calculation Initial Timothy Date Initial Exam Date Initial Exam Provider Initial Ultrasound Date Last Menstrual Period Date Ultra Sound Weeks Gestation 0 Eighteen To Twenty Week Timothy Update Ultra Sound Date Fundal Height At Umbil Quickening Date Ultra Sound Latest Weeks Gestation Final Timothy Confirmed By Final Timothy Confirmed Date Final Timothy Date Ultra Sound Latest Days Gestation 0 0 Menstrual History Last Menstrual Date Menses Monthly On Bcp Conception Prior Menses Frequency Hcg Plus Date Menarche Onset Age Delivery Information Delivery Date Delivery Type Labor Anesthesia Weeks Gestation Incision Type Labor Labor Length Hrs Delivered By Post Complications Tubal Sterilization Discharge Date Comments 8 Discharge Information Feeding Method Contraceptive Method Maternal HG B and HCT Levels Ob Episode Information Episode Created Date Number of Fetuses Patient Bloodtype Patient rh Status Prepregnancy Weight lbs Domestic Partner Domestic Partner Phone Father Name Wood Fence Erector Status 11/30/19 24 1 CLOSED Fetus Data First Name Last Name Admitted to NICU Weight (g) Sex Living Outcome Pediatric Complications Fetus ID Race Codes Race Delivery Type M Full Term [id number] Vaginal Delivery Timothy Calculation Initial Timothy Date Initial Exam Date Initial Exam Provider Initial Ultrasound Date Last Menstrual Period Date Ultra Sound Weeks Gestation 0 Eighteen To Twenty Week Timothy Update Ultra Sound Date Fundal Height At Umbil Quickening Date Ultra Sound Latest Weeks Gestation Final Timothy Confirmed By Final Timothy Confirmed Date Final Timothy Date Ultra Sound Latest Days Gestation 0 0 Menstrual History Last Menstrual Date Menses Monthly On Bcp Conception Prior Menses Frequency Hcg Plus Date Menarche Onset Age Delivery Information Delivery Date Delivery Type Labor Anesthesia Weeks Gestation Incision Type Labor Labor Length Hrs Delivered By Post Complications Tubal Sterilization Discharge Date Comments 4 Discharge Information Feeding Method Contraceptive Method Maternal HG B and HCT Levels
--- OUTSIDE RECORDS SUMMARY | 2024-10-21 11:35 | XMS_ITS | Encounter Summary ---
[facility] Organization [facility] Address [address] 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
--- OUTSIDE RECORDS SUMMARY | 2024-10-21 11:35 | XMS_ITS | Encounter Summary ---
Author Organization 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
--- OUTSIDE RECORDS SUMMARY | 2024-10-21 11:35 | XMS_ITS | Referral Summary ---
Author Organization [facility] [address] Address [address] [place] [address] Care Team Providers Care Converter Supervisor Name Role Phone Albino Bull MD Primary Care Provider [phone] Encounters Date Type Department Care Team Description 10/18/2024 [facility] [address] [place] [address] Albino Bull MD Vertigo 09/12/2024 [facility] [address] [address] Albino Bull MD Pain 08/24/2024 [facility] [address] [address] Richelle Soriano NP 08/24/2024 Orders Only [facility] [address] [phone] Richelle Soriano NP Injury of head, initial encounter (Primary Dx) 08/24/2024 10:00 AM METAL MOVER - 08/24/2024 11:59 PM METAL MOVER Hospital Encounter [facility] [place] [address] Injury of head, initial encounter Discharge Disposition: Discharge to home or self care 08/23/2024 5:35 PM METAL MOVER Lab [facility]) [address] [place] [address] Fatigue, unspecified type; Urinary frequency; Hypothyroidism, unspecified type; Vitamin D deficiency 08/23/2024 1:30 PM METAL MOVER Office Visit [facility] [address] [facility] [address] [place] [address] Richelle Soriano NP GERD without esophagitis (Primary Dx); Essential hypertension; Hypothyroidism, unspecified type; Urinary frequency; Fibromyalgia; Spinal stenosis of lumbar region without neurogenic claudication; Vitamin D deficiency; Fatigue, unspecified type; Injury of head, initial encounter from Last 3 Months Allergies Active Allergy Reactions Criticality Noted Date [...] Take 400 mg by mouth daily Active multivit-school psychological examiner [id number] tablet Take 1 tablet by mouth daily [...] right ear 07/15/2021 Arthralgia of shoulder 09/12/2011 Immunizations Immunization Administration Dates Next Due Influenza, Quadrivalent, Hig h Dose, Preservative Free, Intrr 05/18/2019 Influenza, Quadrivalent, Spl it, Preservative Free, Intramuscular 07/27/2015 Influenza, Trivalent, High D ose, Split, Preservative Free, Intramuscular 05/18/2019,06/14/2018,05/18/2017 Influenza, Trivalent, Preser vative Free, Intramuscular 05/09/2013 Influenza, Unspecified 05/18/2019 Pneumococcal Conjugate PCV 13 05/18/2017 Pneumococcal Polysaccharide PPV23 06/23/2006 Social History Tobacco Use Types Packs/Day Years [...] on file Legal Sex Female 11:30 PM METAL MOVER Gender Identity Female 01/31/2023 2:08 PM CDT Sexual Orientation Straight 01/31/2023 2: 08 PM CDT Last Filed Vital Signs Vital Sign Reading Time Taken Comments Blood Pressure 142/82 08/23/2024 1:52 PM METAL MOVER Pulse 64 08/23/2024 1:52 PM METAL MOVER Temperature 36.5 C (97.7 F) 11/04/2023 3:25 PM CDT Respiratory Rate 18 12/09/2023 1:27 PM CDT Oxygen Saturation 94% 08/23/2024 1:52 PM METAL MOVER Inhaled Oxygen Concentration - - Weight 97.1 kg (214 lb) 08/23/2024 1:52 PM METAL MOVER Height 147.3 cm (4' 10 ) 08/23/2024 1:52 PM METAL MOVER Body Mass Index 44.73 08/23/2024 1:52 PM METAL MOVER Plan of Treatment Not on file Medical Devices Implanted Type Area Medicaid Business Analyst Device Identifier Shelf Expiration Date Model / Serial / Lot [employer] Vectris 5mm 60cm 1x8 Electrode Mri Lead Neurostimulator [id number] - [id number] Implanted:Qty: 1 on 11/04/2023 by Loc Kramer MD at [facility] Left: Back [employer] 09/29/2027 [id number] / / [id number] [employer] Vectris 5mm 60cm 1x8 Electrode Mri Lead Neurostimulator [id number] - [id number] Implanted:Qty: 1 on 11/04/2023 by Loc Kramer MD at [facility] Left: Back [employer] 10/07/2027 [id number] / / [id number] [employer] Neurostimulator Implantable Chronic Pain [id number] - [id number] - [id number] Implanted:Qty: 1 on 11/04/2023 by Loc Kramer MD at [facility] Left: Back [employer] 09/23/2024 [id number] / [id number] / [employer] Envelope Absrb 2.7x2.5in Antibacterial Tyrx Medium Strl [id number] - [id number] Implanted:Qty: 1 on 11/04/2023 by Loc Kramer MD at [facility] Left: Back [employer] 07/21/2024 [id number] / / [id number] Procedures Procedure Name Priority Date/Time Associated Diagnosis Comments CT HEAD WO CONTRAST Schedule Routine, Read Routine (OP Routine) 08/24/2024 10:48 AM METAL MOVER Injury of head, initial encounter EGFR Routine 08/23/2024 3:02 PM METAL MOVER Fatigue, unspecified type DIFFERENTIAL AUTO Routine 08/23/2024 3:0 2 PM METAL MOVER Fatigue, unspecified type CBC WITH AUTO DIFFERENTIAL Routine 08/23/2024 3:02 PM METAL MOVER Fatigue, unspecified type COMPREHENSIVE METABOLIC PANEL Routine 08/23/2024 3:02 PM METAL MOVER Fatigue, unspecified type VITAMIN D 25 HYDROXY Routine 08/23/2024 3:02 PM METAL MOVER Vitamin D deficiency THYROID FUNCTION CASCADE Routine 08/23/2024 3:02 PM METAL MOVER Hypothyroidism, unspecified type VITAMIN B12 Routine 08/23/2024 3:02 PM METAL MOVER Fatigue, unspecified type URINALYSIS AND REFLEX TO MICROSCOPIC AND CULTURE Routine 08/23/2024 3:02 PM METAL MOVER Urinary frequency DEXA AXIAL SKELETON BONE DENSITY 1 OR MORE SITES Schedule Routine, Read Routine (OP Routine) 03/13/2023 9:53 AM CDT Post-menopausal from Last 3 Months or Most Recently Relevant to Health Maintenance Results * CT Head WO Contrast (08/24/2024 10:48 AM METAL MOVER) Anatomical Region Laterality Modality Head and Neck N/A Computed Tomogra phy 08/24/2024 11:0 0 AM METAL MOVER Impressions 08/24/2024 11:00 AM METAL MOVER Subcentimeter calcification within the right midbrain. This could be dystrophic or related to vascular malformation or underlying lesion. Further evaluation with MR brain or correlation with outside prior head CT is recommended. Electronically signed by: Argentina Keenan M.D. Narrative 08/24/2024 11:00 AM METAL MOVER EXAMINATION: CT head without contrast HISTORY: Fall [...] Electronically signed by: Argentina Keenan M.D. Richelle Soriano NP IMG CT PROCEDURES Final Resul t * (ABNORMAL) eGFR (08/23/2024 3:02 PM METAL MOVER) eGFR 51(L) >=60 mL/min/1. 73 m2 Comment: [...] of Race in Diagnosing Kidney Disease, JASN 202). The CKD-EPI equation should not be used for patients with unstable renal function and has not been validated in children and those over 70. Current interpretive data was last reviewed 2021. Blood 08/23/2024 3:02 PM METAL MOVER 08/23/2024 4:35 PM METAL MOVER Richelle Soriano NP LAB BLOOD ORDERABLES Final Re sult [facility] Department [place] [address] * (ABNORMAL) Differential, auto (08/23/2024 3:02 PM METAL MOVER) Neutrophil abs 5.0 1.5 - 6.5 K/cumm Imm gran abs 0.0 0.0 - 0.1 K/cumm [facility] Lymphocyte abs 3.7(H) 0.8 - 3.3 K/cumm [facility] Monocyte abs 0.7 0.2 - 0.8 K/cumm [facility] Eosinophil abs 0.3 0.0 - 0.5 K/cumm [facility] Basophil abs 0.1 0.0 - 0.1 K/cumm [facility] Neutrophil pct 50.5 % [facility] Comment: Interpretive Data Percent cell count reference ranges are not reported, since discordance with absolute values may lead to misinterpretation of CBC data. Current Interpretive Data was last revised on 2017. Imm gran pct 0.2 % [facility] Comment: Interpretive Data Percent cell count reference ranges are not reported, since discordance with absolute values may lead to misinterpretation of CBC data. Current Interpretive Data was last revised on 2017. Lymphocyte pct 38.1 % [facility] Comment: Interpretive Data Percent cell count reference ranges are not reported, since discordance with absolute values may lead to misinterpretation of CBC data. Current Interpretive Data was last revised on 2017. Monocyte pct 7.4 % [facility] Comment: Interpretive Data Percent cell count reference ranges are not reported, since discordance with absolute values may lead to misinterpretation of CBC data. Current Interpretive Data was last revised on 2017. Eosinophil pct 2.9 % [facility] Comment: Interpretive Data Percent cell count reference ranges are not reported, since discordance with absolute values may lead to misinterpretation of CBC data. Current Interpretive Data was last revised on 2017. Basophil pct 0.9 % [facility] Comment: Interpretive Data Percent cell count reference ranges are not reported, since discordance with absolute values may lead to misinterpretation of CBC data. Current Interpretive Data was last revised on 2017. Blood 08/23/2024 3:02 PM METAL MOVER 08/23/2024 4:18 PM METAL MOVER us Richelle Lupe Soriano OPTICAL ADVISOR LAB BLOOD ORDERABLES Final Re sult [facility] [place] [address] * Thyroid Function [place] (08/23/2024 3:02 PM METAL MOVER) TSH 2.29 0.30 - 4.20 mcIUnit/mL Blood 08/23/2024 3:02 PM METAL MOVER 08/23/2024 4:18 PM METAL MOVER Richelle Soriano OPTICAL ADVISOR LAB BLOOD ORDERABLES Final Re sult Performing Organization Address [facility] Co de Phone Number [place] [facility] [place] [address] * Urinalysis reflex to microscopic and culture Urine (08/23/2024 3:02 PM METAL MOVER) Pathologist [facility] Color, ur Straw Yellow Clarity, ur Clear Clear [facility] Specific gravity, ur 1.025 1.003 - 1.030 [facility] pH, urine 5.5 [facility] Comment: Interpretive Data U rine pH is affected by diet, medications, systemic acid-base disturbances, and renal tubular function. pH may affect urinary stone formation. For example, urine pH below 6.0 may help reduce the tendency for calcium phosphate stones and pH greater than 6.0 may reduce the tendency for uric acid stone formation. Source: [facility] [employer] Current Interpretive Data was last revised on 2017 Protein, ur ql Trace Negative [facility] Glucose, ur ql Negative Negative [facility] Ketones, ur Negative Negative [facility] Bilirubin, ur Negative Negative [facility] Blood, ur Negative Negative [facility] Urobilinogen, ur <2.0 <2.0 mg/dL [facility] Nitrite, ur Negative Negative [facility] Leukocyte esterase, ur Negative Negative [facility] UA reflex comment Reflex conditions for microscopic UA and culture not met. [facility] Urine 08/23/2024 3:02 PM METAL MOVER 08/23/2024 4:18 PM METAL MOVER us Richelle Soriano OPTICAL ADVISOR LAB MICROBIOLOGY - GENERAL OR DERABLES Final Result [facility] Department [place] [address] * (ABNORMAL) CBC with auto differential (08/23/2024 3:02 PM METAL MOVER) [facility] WBC 9.8 3.8 - 9.9 K/cumm Hgb 12.5 11.9 - 15.5 g/dL [facility] Hct 39.7 35.6 - 45.5 % [facility] Plt 248 150 - 400 K/cumm [facility] MPV 13.0(H) 9.1 - 12.3 fL [facility] RBC 4.22 3.90 - 5.20 M/cumm [facility] MCV 94.1 81.3 - 96.4 fL [facility] MCH 29.6 27.1 - 33.3 pg [facility] MCHC 31.5(L) 32.3 - 35.7 g/dL [facility] RDW CV 15.2(H) 11.1 - 14.9 % [facility] RDW SD 52.4(H) 35.7 - 48.1 fL [facility] NRBC abs 0.00 0.00 - 0.01 K/cumm [facility] Blood 08/23/2024 3:02 PM METAL MOVER 08/23/2024 4:18 PM METAL MOVER us Richelle Soriano OPTICAL ADVISOR LAB BLOOD ORDERABLES Final Re sult [facility] [employer] [place] [place] [address] * Vitamin D 25 hydroxy (08/23/2024 3:02 PM METAL MOVER) Pathologist [facility] Vitamin D 25-OH 76 30 - 80 ng/mL Blood 08/23/2024 3:02 PM METAL MOVER 08/23/2024 4:18 PM METAL MOVER Richelle Soriano OPTICAL ADVISOR LAB BLOOD ORDERABLES Final Re sult Performing Organization Address City/[facility]/ZIP Co de Phone Number [facility] Department [place] [address] * Vitamin B12 (08/23/2024 3:02 PM METAL MOVER) Pathologist [facility] Vitamin B12 846 230 - 1,250 pg/mL Blood 08/23/2024 3:02 PM METAL MOVER 08/23/2024 4:18 PM METAL MOVER Richelle Soriano OPTICAL ADVISOR LAB BLOOD ORDERABLES Final Re sult Performing Organization Address [facility] Co de Phone Number [facility] [place] [address] * (ABNORMAL) Comprehensive metabolic panel (08/23/2024 3:02 PM METAL MOVER) [facility] Sodium 142 135 - 145 mmol/L Potassium, pl 4.5 3.3 - 4.9 mmol/L [facility] Chloride 103 97 - 110 mmol/L [facility] CO2 28 22 - 32 mmol/L [facility] Anion gap 11 2 - 15 mmol/L [facility] BUN 26(H) 6 - 25 mg/dL [facility] Creatinine 1.08 0.60 - 1.10 mg/dL [facility] Glucose 87 70 - 199 mg/dL [facility] Comment: Interpretive Data Fasting glucose >/= 126 [...] 2022. Calcium 9.7 8.5 - 10.3 mg/dL [facility] Bilirubin, total 0.3 0.1 - 1.2 mg/dL [facility] Protein, pl 7.7 6.5 - 8.5 g/dL [facility] Albumin 4.5 3.5 - 5.0 g/dL [facility] Alk phos 112 40 - 130 Units/L [facility] ALT 12 7 - 45 Units/L [facility] AST 21 10 - 45 Units/L [facility] Blood 08/23/2024 3:02 PM METAL MOVER 08/23/2024 4:18 PM METAL MOVER us Richelle Soriano OPTICAL ADVISOR LAB BLOOD ORDERABLES Final Re sult [facility] Department [place] [address] * Dexa Axial Skeleton Bone Density 1 or 2 Site (03/13/2023 9:53 AM CDT) Anatomical Region Laterality Modality Body N/A Radiographic Liz ging Narrative 03/16/2023 8:19 AM CDT Patient Name: Malathi Sanchez Date of : 1940 Date of scan: 03/13/2023 Bone mineral density was performed on a Hologic Discovery Densitometer. Based on machine cross-calibration and [...] by the International Society of Clinical Densitometry. [id number] Albino Bull MD IM DXA PROCEDURES Final Resu lt from Last 3 Months or Most Recently Relevant to Health Maintenance Insurance [facility] MEDICARE MEDICARE [facility] MEDICARE [facility] MEDICARE [facility] Care Teams Converter Supervisor Relationship Specialty Start Date End Date Albino Bull MD [address] [facility] [address] [place] [address] PCP - General Internal Medicine 12/12/20
--- OUTSIDE RECORDS SUMMARY | 2024-10-21 11:35 | XMS_ITS | Clinical Summary ---
Author Organization [facility] Address [address] [place] [address] Care Team Providers Care Tower Helper Name Role Phone Albino Bull MD Primary Care Provider [phone] Source Comments [facility],non-owned Affiliates and Associated Physician Practices is amultiple site organization consisting of ambulatory clinics and hospital sitesin [place], [place], [place]. This disclosure is being madepursuant to the Care Everywhere program and may not contain all information available regarding this patient. Last updated 18.[facility] Allergies Active Allergy Reactions Criticality Noted Date Comments Latex Urticaria Medium 05/18/2019 Codeine Rash Medium 05/18/2019 hallucinations Immunizations Name Administration Dates Next Due INFLUENZA VACCINE, HIGH-DOSE , QUADR. (FLUZONE HIGH-DOSE QUADRIVALENT; 65Y+), 0.7 ML (HD-IIV4) 05/18/2019 Social History Tobacco Use Types Packs/Day Years Used Date Smoking Tobacco: Never Assessed Sex and Gender Information Value Date Recorded Sex Assigned at Not on file Gender Identity Not on file Sexual Orientation Not on file Plan of Treatment Health Maintenance Due Date Last Done Comments BONE DENSITY TESTING 1940 MEDICARE AWV 12 MONTHS 1940 DTAP/TDAP/TD VACCINES (1 - Tdap) 1960 PNEUMOCOCCAL VACCINE 50+ (1 of 1 - PCV) 1991 ZOSTER VACCINE (1 of 2) 1991 Respiratory Syncytial Virus (RSV) Vaccine Pt: or over 60 yrs (1 - 1-dose 75+ series) 2016 COVID-19 VACCINE ( - 2023-2 5 season) 2024 INFLUENZA VACCINE (#1) 2024 05/18/2019 DEPRESSION SCREENING 08/10/2024 HEPATITIS B VACCINE Aged Out No longe r eligible based on patient's age to complete this topic HIB VACCINE Aged Out No longer eligi ble based on patient's age to complete this topic HPV VACCINE Aged Out No longer eligi ble based on patient's age to complete this topic MENINGOCOCCAL (Group B) VACC INE SHARED DECISION-MAKING Aged Out No longer eligibl e based on patient's age to complete this topic MENINGOCOCCAL GROUPS A/C/Y/W VACCINE Aged Out No longer eligible b ased on patient's age to complete this topic Care Teams Tower Helper Relationship Specialty Start Date End Date Albino Bull MD PCP - General 08/17/19
--- OUTSIDE RECORDS SUMMARY | 2024-10-21 11:35 | XMS_ITS | Clinical Summary ---
Author Organization [facility] Address [address] 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
--- OUTSIDE RECORDS SUMMARY | 2024-10-21 11:35 | XMS_ITS | Patient Health Summary ---
Author Organization [facility] Address [address] [facility] [place] [address] Care Team Providers Care Lifestyle Coordinator Name Role Phone Albino Bull MD Primary Care Provider [phone] [facility],non-owned Affiliates and Associated Physician Practices is amultiple site organization consisting of ambulatory clinics and hospital sitesin [place], [place], [place] and [place]. This disclosure is being madepursuant to the Care Everywhere program and may not contain all information available regarding this patient. Last updated 18.[facility] Allergies * Latex(Urticaria) -Medium Criticality * Codeine(Rash) -Medium Criticality Immunizations * INFLUENZA VACCINE, HIGH-DOSE, QUADR. (FLUZONE HIGH-DOSE QUADRIVALENT; 65Y+), 0.7 ML (HD-IIV4)(Given 05/18/2019) Social History Tobacco Use Types Packs/Day Years Used Date Smoking Tobacco: Never Assessed Sex and Gender Information Value Date Recorded Sex Assigned at Not on file Gender Identity Not on file Sexual Orientation Not on file Care Teams Lifestyle Coordinator Relationship Specialty Start Date End Date Albino Bull MD PCP - General 08/17/19
--- OUTSIDE RECORDS SUMMARY | 2024-10-21 11:35 | XMS_ITS | Encounter Summary ---
Author Organization [facility] Address [address] [place] [address] Care Team Providers Care Acquisition Marketing Manager Name Role Phone Albino Bull MD Primary Care Provider [phone] Reason for Referral * Consultation (Routine) - Authorized Specialty Diagnoses / Procedures Referred By Contac t Referred To Contact Otolaryngology Diagnoses Vertigo Albino Bull MD [address] [facility] [place] [address] Phone: tel: fax: [facility] (All Locations) Referral ID Status Reason Start Date Expiration Date Visits Requested Visits Authorized [id number] Authorized Specialty Services Required 10/20/2024 11/19/2025 1 1 Question Answer Please select the performing region: [facility] (All Locations) [[id number]] # of visits: 1 Reason for Visit * Reason Onset Date Comments Vertigo 10/18/2024 Encounter Details Date Type Department Care Team (Late st Contact Info) Description 10/18/2024 [facility] [address] [facility] [address] [facility] [place] [address] Albino Bull MD [address] [facility] [address] [place] [address] Vertigo Social History Tobacco Use Types Packs/Day Years Used Date Smoking Tobacco: Never Smokeless Tobacco: Never AUDIT-C Answer Date Recorded Q1: How often [...] on file Legal Sex Female 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 Gender Identity Female 01/31/2023 2:08 PM CDT Sexual Orientation Straight 01/31/2023 2: 08 PM CDT documented as of this encounter Ordered Prescriptions Prescription Sig Dispense Quantity Refills Last Filled Start Date End Date meclizine (ANTIVERT) 25 mg tablet Take 1 tablet (25 mg total) by mouth 3 (three) times a day as needed for dizziness 30 tablet 10/18/2024 documented in this encounter Miscellaneous Notes * Addendum Note - Tameka Luque - 10/20/2024 12:54 PM CDTAddended by: TAMEKA LUQUE on: 10/20/2024 12:54 PM Modules accepted: Orders * Telephone Encounter - Tameka Luque - 10/20/2024 12:53 PM CDT Pt notified and voiced understanding. Referral added. Pt given number to call and schedule * Telephone Encounter - Albino Bull MD - 10/20/2024 11:12 AM CDT Refer to ent. * Telephone Encounter - Tameka Luque - 10/20/2024 10:49 AM CDT Pt calling in. Started on the 10th with once a day then yesterday got in the three times a day and used it once today and all it is doing is making pt sleepy. Said that she still feels the same otherthan she is really tired now. Recommendations? Its been almost a week now. [phone] * Telephone Encounter - Tameka Luque - 10/18/2024 2:44 PM CDT ERX sent. Pt notified and voiced understanding. * Telephone Encounter - Albino Bull MD - 10/18/2024 2:40 PM CDT Try meclizine 25mg po tid #30 If continues let us know * Telephone Encounter - Tameka Luque - 10/18/2024 1:17 PM CDT Pt said that she was using it twice a day, she looked for several minutes and could not find the bottle but states that it was OTC meclizine * Telephone Encounter - Albino Bull MD - 10/18/2024 11:58 AM CDT What dose of meclizine did she take * Telephone Encounter - Tameka Luque - 10/18/2024 11:02 AM CDT Symptoms (primary and all associated):.vertigo, said that she feels like she has been drunk for days. Said she feels very off balance, even when her eyes are closed the room is moving. She has had vertigo in the past but this is the worse episode she has ever had Onset/Frequency:.Thursday Temperature:. No Current treatments (both OTC and RX):. Tried Meclizine and it did not help Current dosage of insulin/Coumadin:.no Last office visit:.08/2024 Preferred phone:.[phone] Confirm pharmacy[facility] Allergies reviewed:. Codeine, latex, morphine, opidois Asking what she can do to help or if any medications would help. documented in this encounter Plan of Treatment Scheduled Referrals Name Type Priority Associated Diagnoses Order Schedule Ambulatory referral to ENT Outpatient Referral Routine Vertigo 1 Occurrences starting 10/20/2024 until 10/20/2025 documented as of this encounter Visit Diagnoses Diagnosis Vertigo- Primary Dizziness and giddiness documented in this encounter Care Teams Acquisition Marketing Manager Relationship Specialty Start Date End Date Albino Bull MD [address] [place] [address] PCP - General Internal Medicine 12/12/20 documented as of this encounter
--- OUTSIDE RECORDS SUMMARY | 2024-10-21 11:35 | XMS_ITS | Data Portability ---
Author Organization [facility] [employer], [facility] Address [address] [place] [address] Assessment Encounter Date Assessment Date Assessment LastModified by Organization Details LastModified Time 05/30/2020 05/30/2020 called pt for nurse intake, pt recently moved to the area and would like to establish care, pt is scheduled with Jacquelin Ramirez 07/16/20 @ [facility]. [email or web address] Not available 05/30/2020 12:45:42 07/16/2020 07/16/2020 will plan follow up in 3 months or sooner [email or web address] Not available 07/22/2020 20:31:08 09/04/2020 09/04/2020 Good progress. [email or web address] Not available 09/04/2020 15:28:53 Plan of Treatment Reminders Order Date Submit Date Provider Last Modified By Organization Details Last Modified Time Details Appointments None recorded . Lab CMP, serum or plasma 2019 [facility] (Lab & Admissions), [address], [place], [address], 0 17:39:25 CBC w/ auto diff 2019 [facility] (Lab & Admissions), [address], [place], [address], 0 17:24:16 vitamin B12, serum 2019 [facility] (Lab & Admissions), [address], [place], [address], 0 17:39:24 vitamin D, 25-hydro xy, total, serum [email or web address] (Lab & Ad[facility]), [address] [facility] [place], [address], 0 10:15:25 TSH, serum or plasma 2019 [facility] 30 [facility] (Lab & Admissions), [address] [facility] [place], [address], 0 10:15:25 Referral balance training referral 2019 [facility] (PT/OT/Speech), [address] [place] [address], [place], [address], 1 17:17:27 Procedures None recorded . Surgeries None recorded . Imaging None recorded . Medication Orders allopuri nol 100 mg tablet 2019 [facility] [id number], [address] [place], [address], 0 14:38:50 lisinopr il 20 mg tablet 2019 [facility] [id number], [address] [place], [address], 0 14:38:34 omeprazo le 20 mg capsule, delayed release 2019 [facility] [id number], [address] [place], [address], 0 14:38:56 cyanocob alamin (vit B-12) 1,000 mcg/mL injectio n solution 2019 [facility] [id number], [address] [place], [address], 0 14:38:59 acyclovi r 800 mg tablet 2019 [facility] [id number], [address] [place], [address], 0 14:38:54 Vitamin D2 1,250 mcg (50,000 unit) capsule 2019 [email or web address] 30 [facility] [id number], [address] [place], [address], 0 19:32:02 levothyr oxine 75 mcg tablet 2019 [facility] [id number], [address] [place], [address], 0 14:38:42 gabapent in 600 mg tablet 2019 [facility] [id number], [address] [place], [address], 0 14:38:46 Patient TargetsNo targets recorded. Patient Instructions Encounter Date Encounter Id Patient Instructions Last Modified By Organization Details Last Modified Time 07/16/2020 [id number] fall risk assessment* [email or web address] Not available 07/16/2020 13:13:20 social determinants of health survey* [email or web address] Not available 07/23/2020 10:15:43 patient health questionnaire depression assessment* [email or web address] Not available 07/16/2020 13:13:20 RITA-7 anxiety scale* [email or web address] Not available 07/16/2020 13:13:20 09/04/2020 [id number] XRays: X-rays (3 views of the right wrist) show good fx healing and alignment. She had an intra-articular fracture of the distal radius. I discussed with the patient the surgical findings and answered questions. We discussed rehabilitation and the postoperative course. Continue activities as prescribed. Continue OT/PT. Follow up: They will call if they have any worsening of their symptoms or do not improve per their request. [email or web address] Not available 09/04/2020 15:29:08 Reason for Referral Balance Training Referral carolyn mott Dizziness balance training with Halie clinton Referring Physician: Jacquelin Ramirez, Family Medicine, Encounter Date: 07/16/2020 Results Created Date Observation Date Name Description Value Unit Range Abnormal Flag Note LastModifiedBy Organization Detail LastModifiedTime 07/12/20 20 07/16/2020 fall risk asses sment * Results normal Not Available [facility] [address] [place], [address], 07/12/2020 21:58:17 07/12/20 20 07/16/2020 RITA-7 anxie ty scale * Normal/Abnor mal (Abnormal 10 or above) normal Not Available [facility] [address] [place], [address], 07/12/2020 21:57:50 07/12/20 20 07/16/2020 patie nt healt h quest ionna rosina depre ssion asses sment * Anita/Abnorm al (Abnormal 10 or greater or yes to I normal Not Available [facility] [address] [place], [address], 07/12/2020 21:57:49 07/16/20 20 07/16/2020 CBC w/ auto diff results Speci donna Barraza r: 1207: [id number] Not Available [facility] Radiology Department [address] [place] [address], [address], 07/16/2020 17:20:32 07/16/20 20 07/16/2020 CBC w/ auto diff white blood count 8.4 K/mm3 4.0-10 .5 normal Not Available [facility] Radiology Department [address] [place], [address], 07/16/2020 17:20:32 07/16/20 20 07/16/2020 CBC w/ auto diff red blood count 5.1 M/mm3 4.2-5. 4 normal Not Available [facility] Radiology Department [address] [place], [address], 07/16/2020 17:20:32 07/16/20 20 07/16/2020 CBC w/ auto diff hemoglobin 15.5 gm/dL 12.0-1 5.6 normal Not Available [facility] Radiology Department [address] , [place], [address], 07/16/2020 17:20:32 07/16/20 20 07/16/2020 CBC w/ auto diff hematocrit 48.2 % 37-47 high Not Available [facility] Radiology Department [address] , [place], [address], 07/16/2020 17:20:32 07/16/20 20 07/16/2020 CBC w/ auto diff mean cell volume 94.0 fL 78.0-1 00.0 normal Not Available [facility] Radiology Department [address] , [place], [address], 07/16/2020 17:20:32 07/16/20 20 07/16/2020 CBC w/ auto diff mean corpuscular hemoglobin 30.2 pg 27.0-3 1.0 normal Not Available [facility] Radiology Department [address] , [place], [address], 07/16/2020 17:20:32 07/16/20 20 07/16/2020 CBC w/ auto diff mean corpuscular HGB conc 32.1 g/dL 32.0-3 6.0 normal Not Available [facility] Radiology Department [address] , [place], [address], 07/16/2020 17:20:32 07/16/20 20 07/16/2020 CBC w/ auto diff red cell distribution width 15.1 % 11.5-1 5.0 high Not Available [facility] Radiology Department [address] , [place], [address], 07/16/2020 17:20:32 07/16/20 20 07/16/2020 CBC w/ auto diff platelet count CBC-N 297 K/mm3 130-40 0 normal GIANT PLATE LETS PRESE NT. MODER ATE NUMBE R Not Available [facility] Radiology Department [address] , [place], [address], 07/16/2020 17:20:32 07/16/20 20 07/16/2020 CBC w/ auto diff mean platelet volume 11.4 fL 7.4-10 .5 high Not Available [facility] Radiology Department [address] , [place], [address], 07/16/2020 17:20:32 07/16/20 20 07/16/2020 CBC w/ auto diff neutrophils % 54.1 % 40-75 normal Not Available [facility] Radiology Department [address] , [place], [address], 07/16/2020 17:20:32 07/16/20 20 07/16/2020 CBC w/ auto diff lymph % 34.4 % 18-[address] [facility] Radiology Department [address] , [place], [address], 07/16/2020 17:20:32 07/16/20 20 07/16/2020 CBC w/ auto diff mono % 7.6 % 0-[address] [facility] Radiology Department [address] , [place], [address], 07/16/2020 17:20:32 07/16/20 20 07/16/2020 CBC w/ auto diff eos % 2.4 % 0-[address] [facility] Radiology Department [address] , [place], [address], 07/16/2020 17:20:32 07/16/20 20 07/16/2020 CBC w/ auto diff baso % 1.5 % 0-[address] [facility] Radiology Department [address] , [place], [address], 07/16/2020 17:20:32 07/16/20 20 07/16/2020 CBC w/ auto diff neutrophils # 4.5 K/mm3 2.2-4. 8 normal Not Available [facility] Radiology Department [address] [facility], [place], [address], 07/16/2020 17:20:32 07/16/20 20 07/16/2020 CBC w/ auto diff lymph # 2.9 K/mm3 1.5-3. 5 normal Not Available [facility] Radiology Department [address] [place] [address], [place], [address], 07/16/2020 17:20:32 07/16/20 20 07/16/2020 CBC w/ auto diff mono # 0.6 K/mm3 0.3-0. 8 normal Not Available [facility] Radiology Department [address] [facility], [place], [address], 07/16/2020 17:20:32 07/16/20 20 07/16/2020 CBC w/ auto diff eos # 0.2 K/mm3 0.0-0. 2 normal Not Available [facility] Radiology Department [address] [place] [address], [address], 07/16/2020 17:20:32 07/16/20 20 07/16/2020 CBC w/ auto diff baso # 0.1 K/mm3 0.0-0. 1 normal [place] [facility], [address] [place] [address] MAVIS LACY M.D. * NONA CHÁVEZ M.D. Not Available [facility] Radiology Department [address] [place] [address], [address], 07/16/2020 17:20:32 07/16/20 20 07/16/2020 vitam in B12, serum results Speci donna Barraza r: 1207: [id number] 9R Not Available [facility] Radiology Department [address] [place] [address], [address], 07/16/2020 17:39:24 07/16/20 20 07/16/2020 vitam in B12, serum vitamin B12 (cobalamin) 806 pg/mL 239-93 1 normal Not Available [facility]iology Department [address] [place] [address], [address], 07/16/2020 17:39:24 07/16/20 20 07/16/2020 CMP, serum or plasm a results Specvijay Barraza r: 1207: [id number] Not Available [facility]iology Department [address] [place] [address], [address], 07/16/2020 17:39:25 07/16/20 20 07/16/2020 CMP, serum or plasm a glucose,rand om 99 mg/dL 70-106 normal Not Available [facility]iology Department [address] [place] [address], [address], 07/16/2020 17:39:25 07/16/20 20 07/16/2020 CMP, serum or plasm a blood urea nitrogen 21 mg/dL 7-17 high Not Available [facility]iology Department [address] [place] [address], [address], 07/16/2020 17:39:25 07/16/20 20 07/16/2020 CMP, serum or plasm a creatinine 0.8 mg/dL 0.7-1. 2 normal Not Available [facility]iology Department [address] [place] [address], [address], 07/16/2020 17:39:25 07/16/20 20 07/16/2020 CMP, serum or plasm a BUN/creat ratio 26 12-20 high Not Available [facility]iology Department [address] [place] [address], [address], 07/16/2020 17:39:25 07/16/20 20 07/16/2020 CMP, serum or plasm a estimated GFR >60 mL/mi n >60 normal If Afric an-Am temi n, multi ply by 1.210 Not Available [facility] Radiology Department [address] [place] [address], [address], 07/16/2020 17:39:25 07/16/20 20 07/16/2020 CMP, serum or plasm a sodium 141 mmol/ L 137-14 5 normal Not Available [facility] Radiology Department [address] , [place], [address], 07/16/2020 17:39:25 07/16/20 20 07/16/2020 CMP, serum or plasm a potassium 4.4 mmol/ L 3.5-5. 1 normal Not Available [facility] Radiology Department [address] , [place], [address], 07/16/2020 17:39:25 07/16/20 20 07/16/2020 CMP, serum or plasm a chloride 104 mmol/ L 98-110 normal Not Available [facility] Radiology Department [address] , [place], [address], 07/16/2020 17:39:25 07/16/20 20 07/16/2020 CMP, serum or plasm a carbon dioxide 27 mmol/ L 22-30 normal Not Available [facility] Radiology Department [address] [facility], [place], [address], 07/16/2020 17:39:25 07/16/20 20 07/16/2020 CMP, serum or plasm a anion gap 10 mmol/ L 7-16 normal Not Available [facility] Radiology Department [address] , [place], [address], 07/16/2020 17:39:25 07/16/20 20 07/16/2020 CMP, serum or plasm a calcium 9.8 mg/dL 8.4-10 .2 normal Not Available [facility] Radiology Department [address] , [place], [address], 07/16/2020 17:39:25 07/16/20 20 07/16/2020 CMP, serum or plasm a total protein 7.5 g/dL 6.3-8. 2 normal Not Available [facility] Radiology Department [address] , [place], [address], 07/16/2020 17:39:25 07/16/20 20 07/16/2020 CMP, serum or plasm a albumin 4.3 g/dL 3.2-5. 5 normal Not Available [facility] Radiology Department [address] , [place], [address], 07/16/2020 17:39:25 07/16/20 20 07/16/2020 CMP, serum or plasm a globulin 3.2 g/dL 2.3-3. 5 normal Not Available [facility] Radiology Department [address], [place], [address], 07/16/2020 17:39:25 07/16/20 20 07/16/2020 CMP, serum or plasm a A/G ratio 1.3 g/dL 0.8-2. 6 normal Not Available [facility] Radiology Department [address] , [place], [address], 07/16/2020 17:39:25 07/16/20 20 07/16/2020 CMP, serum or plasm a bilirubin,to justus 0.5 mg/dL 0.2-1. 3 normal Not Available [facility] Radiology Department [address] , [place], [address], 07/16/2020 17:39:25 07/16/20 20 07/16/2020 CMP, serum or plasm a SGOT/AST 28 IU/L 15-46 normal Not Available [facility] Radiology Department [address], [place], [address], 07/16/2020 17:39:25 07/16/20 20 07/16/2020 CMP, serum or plasm a SGPT/ALT 13 IU/L 4-34 normal Not Available [facility] Radiology Department [address] , [place], [address], 07/16/2020 17:39:25 07/16/20 20 07/16/2020 CMP, serum or plasm a alkaline phosphatase 120 IU/L 38-126 normal Not Available [facility] Radiology Department [address], [place], [address], 07/16/2020 17:39:25 07/16/20 20 07/16/2020 TSH, serum or plasm a results Speci donna Barraza r: 1207: [id number] Not Available [facility] Radiology Department [address] [place] [address], [address], 07/16/2020 17:39:25 07/16/20 20 07/16/2020 TSH, serum or plasm a thyroid stimulating hormone 3.16 mIU/L 0.47-4 .68 normal Not Available [facility]iology Department [address] [place] [address], [address], 07/16/2020 17:39:25 07/16/20 20 07/16/2020 vit D total 25-hy droxy results Speci donna Barraza r: 1207: [id number] 9R Not Available [facility] Radiology Department [address] [place] [address], [address], 07/16/2020 17:39:26 07/16/20 20 07/16/2020 vit D total 25-hy droxy vit D total 25-hydroxy 57.0 NG/mL 30-100 normal [place] [facility], [address] [place] [address] MAVIS LACY M.D. * NONA CHÁVEZ M.D. Not Available [facility] Radiology Department [address] [place] [address], [address], 07/16/2020 17:39:26 08/01/20 20 08/01/2020 CBC w/ auto diff results Speci donna Barraza r: 1223: [id number] 7R Not Available [facility] Radiology Department [address] [place], [address], 08/01/2020 18:04:39 08/01/20 20 08/01/2020 CBC w/ auto diff white blood count 9.5 K/mm3 4.0-10 .5 normal Not Available [facility] Radiology Department [address] [place] [address], [address], 08/01/2020 18:04:39 08/01/20 20 08/01/2020 CBC w/ auto diff red blood count 5.1 M/mm3 4.2-5. 4 normal 1+ ANISO CYTOS IS Not Available [facility] Radiology Department [address] , [place], [address], 08/01/2020 18:04:39 08/01/20 20 08/01/2020 CBC w/ auto diff hemoglobin 15.6 gm/dL 12.0-1 5.6 normal Not Available [facility]iology Department [address], [place], [address], 08/01/2020 18:04:39 08/01/20 20 08/01/2020 CBC w/ auto diff hematocrit 47.9 % 37-47 high Not Available [facility] Radiology Department [address], [place], [address], 08/01/2020 18:04:39 08/01/20 20 08/01/2020 CBC w/ auto diff mean cell volume 93.9 fL 78.0-1 00.0 normal Not Available [facility] Radiology Department [address], [place], [address], 08/01/2020 18:04:39 08/01/20 20 08/01/2020 CBC w/ auto diff mean corpuscular hemoglobin 30.6 pg 27.0-3 1.0 normal Not Available [facility] Radiology Department [address], [place], [address], 08/01/2020 18:04:39 08/01/20 20 08/01/2020 CBC w/ auto diff mean corpuscular HGB conc 32.5 g/dL 32.0-3 6.0 normal Not Available [facility] Radiology Department [address], [place], [address], 08/01/2020 18:04:39 08/01/20 20 08/01/2020 CBC w/ auto diff red cell distribution width 15.2 % 11.5-1 5.0 high Not Available [facility] Radiology Department [address], [place], [address], 08/01/2020 18:04:39 08/01/20 20 08/01/2020 CBC w/ auto diff platelet count CBC-N 303 K/mm3 130-40 0 normal FEW PLATE LET CLUMP S OBSER NENO RARE GIANT PLATE LET OBSER NENO Not Available [facility] Radiology Department [address], [place], [address], 08/01/2020 18:04:39 08/01/20 20 08/01/2020 CBC w/ auto diff mean platelet volume 11.5 fL 7.4-10 .5 high Not Available [facility] Radiology Department [address], [place], [address], 08/01/2020 18:04:39 08/01/20 20 08/01/2020 CBC w/ auto diff neutrophils % 54.1 % 40-75 normal Not Available [facility] Radiology Department [address], [place], [address], 08/01/2020 18:04:39 08/01/20 20 08/01/2020 CBC w/ auto diff lymph % 34.6 % 18-[address] [facility] Radiology Department [address], [place], [address], 08/01/2020 18:04:39 08/01/20 20 08/01/2020 CBC w/ auto diff mono % 7.3 % 0-[address] [facility] Radiology Department [address], [place], [address], 08/01/2020 18:04:39 08/01/20 20 08/01/2020 CBC w/ auto diff eos % 3.0 % 0-[address] [facility] Radiology Department [address], [place], [address], 08/01/2020 18:04:39 08/01/20 20 08/01/2020 CBC w/ auto diff baso % 1.0 % 0-[address] [facility] Radiology Department [address], [place], [address], 08/01/2020 18:04:39 08/01/20 20 08/01/2020 CBC w/ auto diff neutrophils # 5.1 K/mm3 2.2-4. 8 high Not Available [facility] Radiology Department [address] , [place], [address], 08/01/2020 18:04:39 08/01/20 20 08/01/2020 CBC w/ auto diff lymph # 3.3 K/mm3 1.5-3. 5 normal Not Available [facility] Radiology Department [address] [place] [address], [address], 08/01/2020 18:04:39 08/01/20 20 08/01/2020 CBC w/ auto diff mono # 0.7 K/mm3 0.3-0. 8 normal Not Available [facility] Radiology Department [address] [place] [address], [address], 08/01/2020 18:04:39 08/01/20 20 08/01/2020 CBC w/ auto diff eos # 0.3 K/mm3 0.0-0. 2 high Not Available [facility] Radiology Department [address] [place] [address], [address], 08/01/2020 18:04:39 08/01/20 20 08/01/2020 CBC w/ auto diff baso # 0.1 K/mm3 0.0-0. 1 normal [place] [facility], [address] [place] [address] MAVIS LACY M.D. * NONA CHÁVEZ M.D. Not Available [facility] Radiology Department [address] [place] [address], [address], 08/01/2020 18:04:39 Result Notes None recorded. Problems Name Problem SNOMED Code Status Onset Date Resolution Date Notes Provider Name and Address Organization Details Recorded Time Neuropathy 061097096 Active 2019 Rosaura Lopez [facility], [place] - [facility] 0 12:35:52 Fibromyalgia 482200518 Active 2019 Rosaura Lopez null, [place] - [facility] 0 12:36:02 Hypertensive disorder 31612097 Active 2019 Ros[place] [facility] 0 12:36:11 Hypothyroidism 21211805 Active 2019 [place] [facility] 0 12:36:21 Acid reflux 955032076 Active 2019 [place] [facility] 0 12:36:31 Diverticulitis 698588911 Active 2019 [place] [facility] 0 12:36:39 Herpes zoster 5914071 Active 2019 Ros[place] [facility] 0 12:36:51 Gout 52357113 Active 2019 Ros[place] [facility] 0 12:36:59 Vitamin D deficiency 01971463 Active 2019 Ros[place] [facility] 0 12:37:15 Cobalamin deficiency 189196427 Active 2019 Ros[place] [facility] 0 12:37:29 Spinal stenosis 16243849 Active 2019 Ros[place] [facility] 0 12:37:39 Osteoarthritis 546211039 Active 2019 Rosaura [place] [facility] 0 12:37:52 Pernicious anemia 47726649 Active 2019 Rosaura [place] [facility] 0 12:38:10 Problem Notes None recorded. Procedures Surgical History Date Name Laterality Status Provider Name and Address Organization Details Recorded Time 07/16/20 20 No blood drawn in clinic completed Collin Meyerir [place] [facility] 07/16/2020 13:15:45 03/10/20 20 closed reduction of fracture of upper limb completed Rosaura Lopez [place] [facility] 05/30/2020 12:44:34 08/10/19 16 Cataract Surgery completed [facility] [place] [facility] 05/30/2020 12:39:30 08/10/19 15 Cataract Surgery completed [facility] [place] [facility] 05/30/2020 12:39:26 08/10/19 13 Abdominal Surgery completed Rosaura Lopez [place] [facility] 05/30/2020 12:42:10 08/10/19 10 fusion completed Rosaura Lopez [place] [facility] 05/30/2020 12:40:59 08/10/19 09 total replacement of right knee joint completed Rosaura Lopez [place] [facility] 05/30/2020 12:40:27 08/10/19 08 total replacement of left knee joint completed Rosaura Lopez [place] [facility] 05/30/2020 12:40:06 08/10/19 05 procedure on foot completed Rosaura Lopez [place] [facility] 05/30/2020 12:42:54 08/10/19 01 Carpal Tunnel Surgery completed Rosaura Lopez [place] [facility] 05/30/2020 12:42:35 08/10/18 80 procedure on eyelid completed Rosaura Lopez [place] [facility] 05/30/2020 12:43:53 08/10/18 70 cholecystectomy completed Rosaura Lopez [place] [facility] 05/30/2020 12:43:16 08/10/18 70 Appendectomy completed Rosaura Lopez [place] [facility] 05/30/2020 12:43:27 Back Surgery completed Beri Gray [place] [facility] 07/16/2020 12:23:21 Tubal Ligation completed Beri Gray [place] [facility] 07/16/2020 12:23:21 Eye Surgery [facility]i Gray [place] [facility] 07/16/2020 12:23:21 Knee Surgery completed [facility]i Gray [place] [facility] 07/16/2020 12:23:21 Joint Replacement completed Beri Gray [facility] - [facility] 07/16/2020 12:23:21 Orthopedic Surgery completed Beri Gray [place] [facility] 07/16/2020 12:23:21 Tonsillectomy completed Beri Gray [place] [facility] 07/16/2020 12:23:21 Imaging Results None recorded. Procedure Notes None recorded. Medical Equipment None Reported. Allergies Allergen ID Allergen Name Allergen Category Reaction Reaction Severity Criticality Documentation Date Start Date Code Code System Note Provider Name and Address Organization Details Recorded Time 82074 codeine medicatio n Not available Not available Not available 05/30/2020 2670 RxNorm Rosaura Lopez null, [place] [facility] 0 12:02:36 32852 morphine medicatio n Not available Not available Not available 05/30/2020 7052 RxNorm Jacquelin Ramirez, AUTH SPECIALIST [address], [address], [facility] 16:36:38 54025 latex environme nt,medica tion Not available Not available Not available 05/30/2020 15941 91 RxNorm Jacquelin Ramirez, AUTH SPECIALIST [address], [address], [facility] 1 16:36:35 23611 morphine medicatio n Not available Not available Not available 08/09/2020 7052 RxNorm Ashley Carter null, [facility] 13:16:17 89610 latex environme nt,medica tion Not available Not available Not available 08/09/2020 34647 91 RxNorm Ashley Carter null, [facility] 13:16:17 06130 codeine medicatio n Not available Not available Not available 08/09/2020 2670 RxNorm Jacquelin Ramirez, AUTH SPECIALIST [address], [address], [facility] 16:36:33 Medications Name Sig Start Date Stop Date Status Note LastModified by Organization Details LastModified Time rabeprazole 20 mg tablet,sander yed release 10/22 completed Not Available Not Available Not Available gabapentin 600 mg tablet Take 0.5 tablets twice a day by oral route for 90 days. active Not Available Not Available No t Available hydrocodone 5 mg-acetamin ophen 325 mg tablet 10/22 completed Not Available Not Available Not Available lisinopril 20 mg tablet Take 1 tablet every day by oral route for 90 days. active Not Available Not Available No t Available allopurinol 100 mg tablet Take 1 tablet 3 times a day by oral route for 90 days. active Not Available Not Available No t Available amoxicillin 500 mg tablet 10/22 completed Not Available Not Available Not Available acyclovir 800 mg tablet Take 1 tablet twice a day by oral route as needed for 10 days. active Not Available Not Available No t Available levothyroxi ne 75 mcg tablet Take 1 tablet every day by oral route for 90 days. active Not Available Not Available No t Available cyanocobala min (vit B-12) 1,000 mcg/mL injection solution Inject 1 mL every month by subcutane ous route for 90 days. 2019 active Not Available Not Available Not Avai lable syringe with needle 3 mL 25 gauge x 1 Use to inject vit b 12 once monthly 2019 active Not Available Not Available Not Avai lable gabapentin 300 mg capsule 10/22 completed Not Available Not Available Not Available omeprazole 20 mg capsule,del ayed release Take 1 capsule twice a day by oral route for 90 days. active Not Available Not Available No t Available methylpredn isolone 4 mg tablets in a dose pack Take 1 dose pk by oral route as directed. active Not Available Not Available No t Available Vitamin D2 1,250 mcg (50,000 unit) capsule Take 1 capsule every week by oral route for 90 days. 2019 active Not Available Not Available Not Avai lable Vitamin B12 100 mcg tablet Take 1 tablet every day by oral route. 10/22 completed Not Available Not Available Not Available acyclovir 800 prn 10/22 completed Not Available Not Available Not Available aspirin 081 daily 10/22 completed Not Available Not Available Not Available levothyroxi ne .75 daily 10/22 completed Not Available Not Available Not Available calcium 1200 Daily 10/22 completed Not Available Not Available Not Available lisinopril .20 daily 10/22 completed Not Available Not Available Not Available allopurinol 100 3x day 10/22 completed Not Available Not Available Not Available B12 B12 injection s 1ml monthly 10/22 completed Not Available Not Available Not Available Vitamin D2 50,000 once a week 07/16 completed Not Available Not Available Not Available Vitals Date Recorded Body weight Body mass index (BMI) Body height Respiratory rate Body temperature Oxygen saturation Oxygen saturation in Arterial blood by Pulse oximetry Heart rate Systolic blood pressure Diastolic blood pressure Provider Name and Address Organization Details Last Updated DateTime 0 18629.2 9 g 40 kg/m2 149.86 cm 18 /min 97.9 [degF] 92 % 92 % 77 /min 134 mm[Hg] 72 mm[Hg] Collin Castellano [employer] 0 12:23:45 Social History Question Answer Notes LastModified by Organizat ion Details LastModified Time Tobacco Smoking Status Never Smoker Rosaura Lopez [facility], [employer] 05/30/2020 12:13:37 Do You Have An Advance Directive? No [email or web address] Information not available 07/16/2020 What Is Your Level Of Alcohol Consumption? None [email or web address] Information not available 05/30/2020 Do You Or Have You Ever Used E-cigarettes Or Vape? Never Used Electronic Cigarettes [email or web address] Information not available 07/16/2020 What Is Your Occupation? Retired Information not available 07/16/2020 How Many Days In The Past Year Have You Had A Heavy Drinking Consumption (4+ Female, 5+ Male)? 0 [email or web address] Information no t available 05/30/2020 Living With: Alone Informatio n not available 05/30/2020 Drugs (including Marijuana) Never Information not available 05/30/2020 Marital Status Single [email or web address] Informatio n not available 07/16/2020 What Was The Date Of Your Most Recent Tobacco Screening? 09/04/2020 [email or web address] Information not available 09/04/2020 What Is Your Relationship Status? Single [email or web address] Information not available 07/16/2020 Do You Or Have You Ever Used Smokeless Tobacco? Never Used Smokeless Tobacco [email or web address] Information not available 07/16/2020 How Much Tobacco Do You Smoke? No Information not available 05/30/2020 Sex: Unknown Functional Status None recorded. Mental Status None recorded. Family History Relationship Description Onset Age of this Age Resolved Age Notes LastModified by Organization Details LastModified Time Mother Gout [email or web address] Not availab le 05/30/2020 12:38:32 Mother Hypertensive disorder [email or web address] Not available 2019 12:22:42 Mother Heart disease [email or web address] Not available 2019 12:22:42 Father Chronic obstructive pulmonary disease [email or web address] Not available 2019 12:22:42 Paternal Grandfather Diabetes mellitus [email or web address] Not available 12:39:01 Paternal Grandmother Diabetes mellitus Not available 12:39:01 Medical History Condition Response Gout Y Other N Macular Degeneration N Blood disorders N Hernia N Erectile Dysfunction N Sexually Transmitted Disease N Glaucoma N COPD N Breast Problem N Pacemaker N Sexually Transmitted Disease, Type N Vaginal Dryness N Migraine Headaches Y Vaginal Infections N Skin Ulcer N Autoimmune disease N Obesity N Arthritis Y Shingles Y Mental Disorder N Blood Clot N Hot Flashes N Reflux/Heartburn/GERD/Stomach Ulcer Y Cancer N Heart Disease/CAD N Bladder or Kidney Problems N Stroke/TIA Y Heart failure/CHF N High Cholesterol Y Pneumonia/Bronchitis Y Liver Disease N Concussion N Suicide Attempt N Hearing Loss/Ringing N Kidney Disease N High blood pressure Y Anxiety N Ear or Hearing Problems N Thyroid Problems Y Domestic Violence N Goiter N ADD/ADHD N Eating Disorder N Skin Problems N Anemia Y Multiple Sclerosis N atrial fibrillation N Mental Illness N Diabetes N Bleeding Disorder N Hay fever/Seasonal Allergies N Dementia/Alzheimer's N Substance Abuse/Drug or Alcohol Problem N Tuberculosis N AIDS/HIV N Pyelonephritis/Kidney Infection N Chronic Pain Y Diverticulitis Y Asthma N Lupus N Prostate Problems/BPH N Neuropathy Y Cancer, Type N Chicken Pox N Autism Spectrum Disorder (ASD) N Gynecological History Statement/Question Response Full Term Deliveries 2 History of Abnormal Pap Smear? N Total Living Children? 2 History of Pre-eclampsia/Toxemia? N On control? N Age at Menarche 10 History of High Blood Pressure During Pr egnancy? N Total pregnancies? 2 If Post Menopausal, Age at Menopause 46 History of Gestational Diabetes? N Possibly ? N History of Abnormal Mammogram? Y Hormone Replacement Therapy N History of child over 9lbs at ? N Obstetrics History GPAL:G 2 P 2 0 0 2 Type Value Full Term 2 Living 2 Total 2 Past Encounters Encounter ID Performer Location Encounter Start Date Encounter Closed Date Diagnosis/Indication Diagnosis SNOMED-CT Code Diagnosis ICD10 Code Diagnosis Note [id number] Jacquelin Ramirez APN [facility] [address] [place] [place] [address] 05/30/2020 12:00:56 05/30/2020 12:45:55 [id number] Jacquelin Ramirez APN [facility] [address] [place] [address] 07/16/2020 11:52:33 07/16/2020 13:27:48 Patient new to facility [id number] 76813 Z76.89 no sdoh needs Depression screening 171 746537 Z13.31 no bh needs identified Screening for disorder 987983016 Z13.9 discussed fall prevention measures Vitamin D deficiency 347 04894 E55.9 will check labs and refill meds Hypothyroidism 86978858 E03.9 will check labs and refill meds Hypertensive disorder 38 693051 I10 will check labs and refill medsbp within desired range today Pernicious anemia 492848 09 D51.0 will check labs and refill meds Herpes zoster 1592335 B0 2.9 will refill meds Gout 39075236 M10.9 will check labs and refill meds Neuropathy 742249379 G62 .9 will refill meds Acid reflux 883949473 K2 1.9 will refill meds Dizziness 541248361 R42 will check labs and send referral for balance training with halie at [facility] PT in [place] [id number] Julio Fox MD [facility] [address] [place] [id number] 09/04/2020 11:40:40 09/06/2020 12:54:30 Postoperative visit 691346676 Z09 Health Concerns Section Related Observation LastModified by Organization Detai ls LastModified Time None Recorded Concern Status LastModified by Organization Details LastModified Time None Recorded Advance Directives Directive N: Payers Encounter Date Sequence Insurance Name Policy Number Policy Rubio Covered Member ID Rubio Member ID Guarantor Name 05/30/2020 1 *SELF PAY* Brittany Sanchez 07/16/2020 1 MEDICARE B-CO: [employer] Malathi Sanchez [id number] Malathi Sanchez 07/16/2020 2 [employer] OPTIONS (MEDICARE SUPPLEMENT) Malathi Sanchez [id number] Malathi Sanchez 09/04/2020 1 MEDICARE B-CO: [employer] Malathi Sanchez [id number] Malathi Sanchez 09/04/2020 2 [employer] OPTIONS (MEDICARE SUPPLEMENT) Malathi Sanchez [id number] Malathi Sanchez Notes Date Note Type Note Provider Name and Address Organization Details Recorded Time 020 text/ht ml Med [id number] DDizzy - most of her life, especially past few months 80 yo WF presents to the clinic to establish care with this provider after relocating her from [place]. She moved her with her son and daughter in law who are both RNs.PMHX:GERD--- controlled well with [id number] def --- on oral and IM replacementdiverticulitis -- no current symptomsgout---on allopurinolfibromyalgiarecurrent shingles --- acyclovir at sign of outbreakhtn --lisinoprilhypothyroid -- compliant with levothyroxine ---feels well controlledneuropathy -- on gabapentin and finds helpfulOAspinal stenosisvit d def -- on vit d replacement She reports chronic dizziness with occasional falls. She feels her dizziness has increased since moving here. She would like a referral for PT in [place] ([place]) that can help with her dizziness. She reports the room is spinning which is worse when she turns her head. She reports significant concussion at age 11 and wonders if this contributes. She reports neurology work up in [place] which was unremarkable and they told her it was just old age. Meclizine is not helpful. She recently had a right wrist fx due to a fall. She is wearing a right wrist brace today. She reports diet changes since moving here which have helped her to lose some weight. Colon: last within 1 yrMammo: 1 1/2 years agoDexa: recent in last 2 yrs Imm: UTD NO tobacco or etoh use Jacquelin Ramirez APN [address], [phone], [employer] 07/22/2020 20:31:17 021 text/ht ml The patient is doing well s/p right wrist fracture. The patient was injured in [place] and had surgery on 03/30/20 with ORIF. She is doing well. Julio Fox MD [address], [address], [employer] 09/04/2020 15:29:12 OBGyn Episode No OBEpisode recorded.
--- OUTSIDE RECORDS SUMMARY | 2024-10-21 11:35 | XMS_ITS | Referral Summary ---
Author Organization [facility] Address [address] [place] [address] Care Team Providers Care Wildlife Control Operator Name Role Phone Albino Bull MD Primary Care Provider [phone] Source Comments [facility],non-owned Affiliates and Associated Physician Practices is amultiple site organization consisting of ambulatory clinics and hospital sitesin [place], [place], [place] and [place]. This disclosure is being madepursuant to the Care Everywhere program and may not contain all information available regarding this patient. Last updated 18.[facility] MXP4 Allergies Active Allergy Reactions Criticality Noted Date [...] Orientation Not on file Plan of Treatment Not on file Care Teams Wildlife Control Operator Relationship Specialty Start Date End Date Albino Bull MD PCP - General 08/17/19
--- OUTSIDE RECORDS SUMMARY | 2024-10-21 11:35 | XMS_ITS | CONTINUITY OF CARE DOCUMENT ---
Author Name liza de jesus Address Unknown Organization [facility] Address [address] [place] [address] Phone [phone] Care Team Providers Care Cooler Room Worker Name Role Phone liza de jesus Unavailable Unavailable INSURANCE PROVIDERS Payer name Policy type / Coverage type [employer]ccaulley red green party ID [id number] Other [id number]
--- NOTE | 2024-10-21 13:04 | ED.DIZZY ---
HPI - Dizziness General Chief Complaint: Dizziness <Debbi Duarte PA-C - Last Filed: 10/21/24 18:14> Stated Complaint: dizziness, fall this morning, on meclizine <Debbi Duarte PA-C - Last Filed: 10/21/24 18:14> Time Seen by Provider: 10/21/24 13:50 <Debbi Duarte PA-C - Last Filed: 10/21/24 18:14> Focused HPI: This is a 84 year old female that presents to the ER for extreme dizziness, room spinning. Ongoing over the last week. It causes her to feel off balance. Reports she was prescribed Meclizine without relief. She does have history of vertigo. Reports she fell today due to dizziness. Reports she landed on her left side. Reports left sided rib pain and hip pain after falling. She does not believe she hit her head. She did not lose consciousness. She is not on anticoagulation. Denies vision changes, vomiting, numbness or weakness. GENERAL: Elderly, well-nourished, and in no acute distress. HEAD: Normocephalic, atraumatic. CHEST: Clear to auscultation. ?No respiratory distress. HEART: Regular rate and rhythm.? NEURO: ?Alert and oriented x3. Patient screened in triage and initial orders placed.? ?Additional care and disposition to be based upon?diagnostic testing and treatment. <Debbi Duarte PA-C - Last Filed: 10/21/24 18:14> History of Present Illness HPI Narrative: Agree with the HPI above. Patient provides additional information and tells me that she has had multiple TIAs in the past and has been evaluated by Neurology. She called her regular doctor for advice and prescribed meclizine for to your nose throat but she could not wait for this appointment so she came to the ER today. Denies any present headache, nauseousness or vomiting. No abdominal pain or back pain. No chest pain, dysrhythmia, palpitations. No fever chills. <Shane Meyers MD - Last Filed: 10/21/24 16:50> Related Data Home Medications: Home Medications ?Medication ?Instructions ?Recorded ?Confirmed ?Last Taken ?Type acyclovir 800 mg tablet 800 mg PO .PRN 08/12/21 03/24/24 Unknown History allopurinol 100 mg tablet 100 mg PO TID 08/12/21 03/30/24 03/29/24 History aspirin 81 mg tablet,delayed 81 mg PO DAILY 08/12/21 03/30/24 03/29/24 History release (Adult Low Dose Aspirin) cyanocobalamin (vitamin B-12) 100 mcg subcut MONTHLY 08/12/21 03/30/24 03/26/24 History 1,000 mcg/mL injection solution ergocalciferol (vitamin D2) 1,250 1,250 mcg PO WEEKLY 08/12/21 03/30/24 03/26/24 History mcg (50,000 unit) capsule gabapentin 300 mg capsule 300 mg PO TID 08/12/21 03/30/24 03/30/24 04:00 History levothyroxine 75 mcg tablet 75 mcg PO DAILY 08/12/21 03/30/24 03/30/24 04:00 History lisinopril 20 mg tablet 20 mg PO DAILY 08/12/21 03/30/24 03/29/24 History omeprazole 20 mg capsule,delayed 20 mg PO BID 08/12/21 03/30/24 03/29/24 History release calcium carbonate (Calcium 600) 1,200 mg PO DAILY 03/24/24 03/30/24 03/26/24 History furosemide 20 mg tablet 20 mg PO DAILY 03/24/24 03/30/24 Unknown History magnesium 250 mg tablet 250 mg PO DAILY 03/24/24 03/30/24 03/26/24 History <Debbi Duarte PA-C - Last Filed: 10/21/24 18:14> Allergies/Adverse Reactions: Allergies Allergy/AdvReac Type Severity Reaction Status Date / Time latex Allergy Intermediate RASH/SWELLI Verified 10/21/24 10:48 NG morphine Allergy Intermediate RASH Verified 10/21/24 10:48 codeine AdvReac Intermediate N/V Verified 10/21/24 10:48 <Debbi Duarte PA-C - Last Filed: 10/21/24 18:14> Review of Systems Review of Systems: As reviewed above in HPI <Shane Meyers MD - Last Filed: 10/21/24 16:50> [facility] Past Medical History Medical History: Medical History Spinal stenosis Fibromyalgia TIA (transient ischemic attack) Hypertension GERD (gastroesophageal reflux disease) Allergies <Debbi Duarte PA-C - Last Filed: 10/21/24 18:14> Social History Social History: Social History Smoking status: Never smoker Alcohol intake: never Substance use: never Living arrangements: alone Spiritual care concerns: No <Debbi Duarte PA-C - Last Filed: 10/21/24 18:14> Exam Narrative: GENERAL: [Well-appearing, well-nourished, and in no acute distress.] HEAD: [Normocephalic, atraumatic.] EYES: [PERRLA and EOMI.] ENT: Nares clear, no rhinorrhea or epistaxis. Mucous membranes moist. Bilateral otoscopic examination with clear tympanic membranes, no effusions or debris. NECK: Supple. CHEST: [Clear to auscultation. No respiratory distress.] HEART: [Regular rate and rhythm]. No murmur heard. [Normal peripheral pulses.] ABDOMEN: [Soft, nondistended], [nontender], [No rigidity or guarding] EXTREMITIES: Normal range of motion. [No edema.] SKIN: Warm, dry, no rash. NEURO: [No focal deficits]. Alert and oriented [x3.] PSYCH: [Normal mood and affect.] <Shane Meyers MD - Last Filed: 10/21/24 16:50> Course Vital Signs Vital signs: Vital Signs Temperature 97.2 F L 10/21/24 10:55 Pulse Rate 81 10/21/24 10:55 Respiratory Rate 16 10/21/24 10:55 Blood Pressure 148/81 H 10/21/24 10:55 Pulse Oximetry 96 10/21/24 10:55 Oxygen Delivery Room Air 10/21/24 10:55 Temperature 97.2 F L 10/21/24 10:55 Pulse Rate 71 10/21/24 18:00 Respiratory Rate 18 10/21/24 18:00 Blood Pressure 168/71 H 10/21/24 18:00 Pulse Oximetry 98 10/21/24 18:00 Oxygen Delivery Room Air 10/21/24 10:55 <Debbi Duarte PA-C - Last Filed: 10/21/24 18:14> Vital Signs Temperature 97.2 F L 10/21/24 10:55 Pulse Rate 81 10/21/24 10:55 Respiratory Rate 16 10/21/24 10:55 Blood Pressure 148/81 H 10/21/24 10:55 Pulse Oximetry 96 10/21/24 10:55 Oxygen Delivery Room Air 10/21/24 10:55 Temperature 97.2 F L 10/21/24 10:55 Pulse Rate 71 10/21/24 18:00 Respiratory Rate 18 10/21/24 18:00 Blood Pressure 168/71 H 10/21/24 18:00 Pulse Oximetry 98 10/21/24 18:00 Oxygen Delivery Room Air 10/21/24 10:55 <Shane Meyers MD - Last Filed: 10/21/24 16:50> MDM - Dizziness MDM Narrative Medical decision making narrative: 84-year-old female with history of vertigo, TIA. She presents to the emergency department for dizziness and vertiginous symptoms since last Thursday. The last week she has been dealing with what appears to be persistent vertigo and worse with positional changes. She actually fell due to the dizziness this morning but did not strike her head or lose consciousness. No anticoagulation use. She is otherwise well-appearing, called her regular doctor and referred to an open hearth laborer but did not want to wait for the appointment so she came to the ER. Patient has been trying meclizine 25 mg t.i.d. without any relief of her symptoms. She says she has been having vertigo on and off for many years and this is not a new issue but his persistent today. She is otherwise well-appearing not any acute distress. Has an unremarkable neurological examination, awake alert oriented. Normal ear nose and throat exam. No nystagmus or ataxia. Blood pressure mildly hypertensive but not severe. No tachycardia, fever or hypoxia. Differential diagnosis includes benign positional paroxysmal vertigo, Meniere's syndrome, upper respiratory infection, possibly but less likely central pathology of vertigo such as mass or aneurysm, dissection. TIA or stroke less likely. Cardiac etiology such as dysrhythmia also possible but less likely given her well appearance normal rate regular rhythm. Workup ordered including a CT head CT angiography of the head neck, CBC, CMP, EKG and chest x-ray obtained. She was provided Valium 2.5 mg IV of and re-evaluated to see if she has any improvement her vertiginous symptoms. Workup shows no significant leukocytosis or anemia. Normal platelet count. Electrolytes are within normal limits, creatinine and BUN at her baseline CKD. Normal glucose, normal LFTs. CT angiography of the head neck shows normal aging brain, no aneurysm dissection or stenosis. 0% stenosis of the internal carotid arteries which is reassuring. Noncontrast head CT without any concern. X-rays of the ribs chest and pelvis shows no acute abnormalities or fractures. Degenerative joint changes in the hips. Patient was able to ambulate here in the emergency department with the assistance of her cane without difficulty and she felt improved after the Valium. EKG shows no ectopy or dysrhythmia and appears to be normal sinus rhythm. Given patient's improvement with benzodiazepine therapy and no significant findings on her workup I believe she can be safely discharged home with ENT referral which her primary doctor has already provided for her. She will be sent home with a prescription for Valium as needed for vertiginous symptoms in addition to her meclizine. Patient is safe and stable and family comfortable with discharge at this time. <Shane Meyers MD - Last Filed: 10/21/24 16:50> Medical Records Attestation: I reviewed the patient's medical records. <Shane Meyers MD - Last Filed: 10/21/24 16:50> Lab Data Attestation: I reviewed the patient's lab results. <Shane Meyers MD - Last Filed: 10/21/24 16:50> Result diagrams: 10/21/24 14:01 10/21/24 14:01 <Debbi Duarte PA-C - Last Filed: 10/21/24 18:14> Labs: Lab Results 10/21/24 Range/Units 14:01 WBC 10.7 H (4.5-10.0) K/mm3 RBC 4.40 (4.2-5.4) M/mm3 Hgb 13.0 (12.0-15.0) g/dL Hct 42.1 (37.0-47.0) % MCV 95.7 (80-100) fl MCH 29.5 (26-34) pg MCHC 30.9 L (32-36) g/dl RDW 14.9 H (11.5-14.5) % Plt Count 278 (150-375) k/mm3 MPV 12.7 H (7.4-10.4) fl Immature Gran % (Auto) 0.5 (0-0.5) % Neut % (Auto) 58.8 (45.5-73.1) % Lymph % (Auto) 30.4 (18.3-44.2) % Bennett % (Auto) 6.8 (2.6-8.5) % Eos % (Auto) 2.5 (0-4.4) % Baso % (Auto) 1.0 (0.2-1.2) % Lymph # (Auto) 3.24 H (0.9-3.2) K/mm3 Bennett # (Auto) 0.7 H (0.1-0.6) K/mm3 Eos # (Auto) 0.3 (0-0.3) K/mm3 Baso # (Auto) 0.1 (0.0-0.1) K/mm3 Abs Immat Gran (auto) 0.05 H (0.00-0.031) K/mm3 Absolute Neuts (auto) 6.3 (1.3-6.7) K/mm3 Absolute Nucleated RBC 0.000 (0.0-0.012) K/mm3 Nucleated RBC % 0.0 (0.0-0.2) % Sodium 139 (137-145) mmol/L Potassium 4.6 (3.4-5.0) mmol/L Chloride 102 (98-107) mmol/L Carbon Dioxide 26 (22-30) mmol/L Anion Gap 11 (4-12) mmol/L BUN 30 H (7-17) mg/dL Creatinine 1.10 H (0.7-1.0) mg/dL Estim Creat Clear Calc Not Reportable Estimated GFR 47 L (59 - ) Glucose 93 (65-110) mg/dL Calcium 9.6 (8.4-10.2) mg/dL Total Bilirubin 0.6 (0.2-1.3) mg/dL AST 27 (14-36) U/L ALT 14 (6-35) U/L Alkaline Phosphatase 113 (38-126) U/L Total Protein 8.0 (6.3-8.2) g/dL Albumin 4.6 (3.5-5.1) g/dL <Debbi Duarte PA-C - Last Filed: 10/21/24 18:14> Lab Results 10/21/24 Range/Units 14:01 WBC 10.7 H (4.5-10.0) K/mm3 RBC 4.40 (4.2-5.4) M/mm3 Hgb 13.0 (12.0-15.0) g/dL Hct 42.1 (37.0-47.0) % MCV 95.7 (80-100) fl MCH 29.5 (26-34) pg MCHC 30.9 L (32-36) g/dl RDW 14.9 H (11.5-14.5) % Plt Count 278 (150-375) k/mm3 MPV 12.7 H (7.4-10.4) fl Immature Gran % (Auto) 0.5 (0-0.5) % Neut % (Auto) 58.8 (45.5-73.1) % Lymph % (Auto) 30.4 (18.3-44.2) % Bennett % (Auto) 6.8 (2.6-8.5) % Eos % (Auto) 2.5 (0-4.4) % Baso % (Auto) 1.0 (0.2-1.2) % Lymph # (Auto) 3.24 H (0.9-3.2) K/mm3 Bennett # (Auto) 0.7 H (0.1-0.6) K/mm3 Eos # (Auto) 0.3 (0-0.3) K/mm3 Baso # (Auto) 0.1 (0.0-0.1) K/mm3 Abs Immat Gran (auto) 0.05 H (0.00-0.031) K/mm3 Absolute Neuts (auto) 6.3 (1.3-6.7) K/mm3 Absolute Nucleated RBC 0.000 (0.0-0.012) K/mm3 Nucleated RBC % 0.0 (0.0-0.2) % Sodium 139 (137-145) mmol/L Potassium 4.6 (3.4-5.0) mmol/L Chloride 102 (98-107) mmol/L Carbon Dioxide 26 (22-30) mmol/L Anion Gap 11 (4-12) mmol/L BUN 30 H (7-17) mg/dL Creatinine 1.10 H (0.7-1.0) mg/dL Estim Creat Clear Calc Not Reportable Estimated GFR 47 L (59 - ) Glucose 93 (65-110) mg/dL Calcium 9.6 (8.4-10.2) mg/dL Total Bilirubin 0.6 (0.2-1.3) mg/dL AST 27 (14-36) U/L ALT 14 (6-35) U/L Alkaline Phosphatase 113 (38-126) U/L Total Protein 8.0 (6.3-8.2) g/dL Albumin 4.6 (3.5-5.1) g/dL <Shane Meyers MD - Last Filed: 10/21/24 16:50> Imaging Data Attestation: I personally reviewed and interpreted this imaging study as follows: <Shane Meyers MD - Last Filed: 10/21/24 16:50> My impression: Impressions Head CT 10/21/24 13:27 IMPRESSION: 1. Normal aging brain. Hip/Pelvis X-Ray 10/21/24 13:49 Impression: No acute abnormality is seen. Minimal degenerative change of both hip joints. Ribs w/Chest X-Ray 10/21/24 13:51 IMPRESSION: No acute displaced left-sided rib fracture is identified. The lungs are clear. Head/Neck CTA 10/21/24 15:12 IMPRESSION: 1. Normal aging brain. 2. No aneurysm or significant intracranial arterial stenosis. 3. 0% stenosis of the proximal internal carotid arteries relative to normal distal artery lumen diameters (NASCET criteria). <Shane Meyers MD - Last Filed: 10/21/24 16:50> Critical Care Time Critical Care Time Critical Care Time: No <Debbi Duarte PA-C - Last Filed: 10/21/24 18:14> Discharge Plan Discharge Clinical Impression: Vertigo Benign paroxysmal positional vertigo Qualifiers: Laterality: unspecified laterality Qualified Code(s): H81.10 - Benign paroxysmal vertigo, unspecified ear <Debbi Duarte PA-C - Last Filed: 10/21/24 18:14> Patient Disposition: Home, Self-Care <Debbi Duarte PA-C - Last Filed: 10/21/24 18:14> Condition: Stable <ATA Snider Last Filed: 10/21/24 18:14> Instructions: Antibiotic Form, Vertigo (ED), Benign Paroxysmal Positional Vertigo (ED) <Debbi Duarte PA-C - Last Filed: 10/21/24 18:14> Additional Instructions: Your CT scan and CT angiography scan shows no acute intracranial process or arterial injury or any vessel occlusion. Your laboratory studies are reassuring. Your symptoms very consistent with benign vertigo or peripheral vertigo. You need to follow-up with your nose and throat. Will send you home with as needed Valium for vertiginous symptoms. Return with any new or worsening concerns. Follow-up with ENT outpatient. <Debbi Duarte PA-C - Last Filed: 10/21/24 18:14> Patient Language: Maldivian <Debbi Duarte PA-C - Last Filed: 10/21/24 18:14> Prescriptions: New diazepam [Valium] 2 mg tablet 2 mg PO TID PRN (Reason: vertigo) Qty: 14 0RF No Action lisinopril 20 mg tablet 20 mg PO DAILY levothyroxine 75 mcg tablet 75 mcg PO DAILY gabapentin 300 mg capsule 300 mg PO TID omeprazole 20 mg capsule,delayed release(DR/EC) 20 mg PO BID ergocalciferol (vitamin D2) 1,250 mcg (50,000 unit) capsule 1,250 mcg PO WEEKLY aspirin [Adult Low Dose Aspirin] 81 mg tablet,delayed release (DR/EC) 81 mg PO DAILY allopurinol 100 mg tablet 100 mg PO TID acyclovir 800 mg tablet 800 mg PO .PRN cyanocobalamin (vitamin B-12) 1,000 mcg/mL solution 100 mcg subcut MONTHLY calcium carbonate [Calcium 600] 600 mg calcium (1,500 mg) Tablet 1,200 mg PO DAILY furosemide 20 mg tablet 20 mg PO DAILY Rx Instructions: pt not taking daily but few times a week magnesium 250 mg Tablet 250 mg PO DAILY <Debbi Duarte PA-C - Last Filed: 10/21/24 18:14> Follow-up/Referrals: Olman Young MD [Physician] - 1 Week ([facility]) Ml,Albino Smith MD [Primary Care Provider] - <Debbi Duarte PA-C - Last Filed: 10/21/24 18:14> Time of Disposition: 16:50 <Debbi Duarte PA-C - Last Filed: 10/21/24 18:14> 16:50 <Shane Meyers MD - Last Filed: 10/21/24 16:50>
[2024-10-21 14:13] LABS: Basophils Absolute Auto 0.1 K/mm3 (0.0-0.1); Eosinophils Absolute Auto 0.3 K/mm3 (0-0.3); Eosinophils Percent Auto 2.5 % (0-4.4); Hematocrit 42.1 % (37.0-47.0); Immature Granulocyte Absolute 0.05 K/mm3 (0.00-0.031); Immature Granulocyte Percent A 0.5 % (0-0.5); Lymphocytes Absolute Auto 3.24 K/mm3 (0.9-3.2); Lymphocytes Percent Auto 30.4 % (18.3-44.2); Mean Corpuscular HGB Conc 30.9 g/dl (32-36); Mean Corpuscular Hemoglobin 29.5 pg (26-34); Mean Corpuscular Volume 95.7 fl (80-100); Mean Platelet Volume 12.7 fl (7.4-10.4); Monocytes Absolute Auto 0.7 K/mm3 (0.1-0.6); Monocytes Percent Auto 6.8 % (2.6-8.5); Neutrophils Absolute Auto 6.3 K/mm3 (1.3-6.7); Neutrophils Percent Auto 58.8 % (45.5-73.1); Platelet Count Result 278 k/mm3 (150-375); Red Cell Distribution Width 14.9 % (11.5-14.5); White Blood Count 10.7 K/mm3 (4.5-10.0)
[2024-10-21 14:21] LABS: Alanine Aminotransferase 14 U/L (6-35); Albumin Level 4.6 g/dL (3.5-5.1); Alkaline Phosphatase 113 U/L (38-126); Anion Gap 11 mmol/L (4-12); Aspartate Amino Transferase 27 U/L (14-36); Bilirubin,Total 0.6 mg/dL (0.2-1.3); Blood Urea Nitrogen 30 mg/dL (7-17); Calcium 9.6 mg/dL (8.4-10.2); Carbon Dioxide 26 mmol/L (22-30); Chloride 102 mmol/L (98-107); Estimated Glomerular Filt Rate 47; Glucose 93 mg/dL (65-110); Potassium 4.6 mmol/L (3.4-5.0); Sodium 139 mmol/L (137-145)
[2024-10-21] MEDS: diazePAM INJ (*CRX) 10 MG/2 ML SYRINGE 2.5 MG IV PUSH (14:30)
[2024-10-21] MEDS: LACTATED RINGERS 1,000 ML 999 ML IV CONT (14:30)
--- OUTSIDE RECORDS SUMMARY | 2024-10-21 14:37 | XMS_ITS | Encounter Summary ---
Author Organization [facility] Healthcare Address [address] [place] [address] Care Team Providers Care Printed Circuit Board Assembler Name Role Phone Albino Bull MD Primary Care Provider [phone] Encounter Details Date Type Department Care Team (Late st Contact Info) Description 02/13/2023 Telephone [facility] [address] [place] [address] Jovani Tsai, RT Social History Tobacco Use Types Packs/Day Years Used Date Smoking Tobacco: Never Comments Unknown Sex and Gender Information Value Date Recorded Sex Assigned at Not on file Legal Sex Female 11:30 PM [employer] Gender Identity Female 01/31/2023 2:08 PM CDT Sexual Orientation Straight 01/31/2023 2: 08 PM CDT documented as of this encounter Plan of Treatment Not on file documented as of this encounter Visit Diagnoses Not on filedocumented in this encounter Care Teams Printed Circuit Board Assembler Relationship Specialty Start Date End Date Albino uBll MD [address] [place] [address] PCP - General Internal Medicine 12/12/20 documented as of this encounter
--- OUTSIDE RECORDS SUMMARY | 2024-10-21 14:37 | XMS_ITS | Encounter Summary ---
Author Organization [facility] Address [address] [place] [address] Care Team Providers Care Orchestra Leader Name Role Phone Albino Bull MD Primary Care Provider [phone] Encounter Details Date Type Department Care Team (Late st Contact Info) Description 10/21/2024 [facility] [address] [facility] [address] [facility] [address] [place] [facility] [place] [address] Albino Bull MD [address] [facility] [address] [place] [address] Social History Tobacco Use Types Packs/Day Years [...] on file 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 Gender Identity Female 01/31/2023 2:08 PM CDT Sexual Orientation Straight 01/31/2023 2: 08 PM CDT documented as of this encounter Plan of Treatment Not on file documented as of this encounter Procedures Procedure Name Priority Date/Time Associated Diagnosis Comments SCAN - RADIOLOGY/IMAGING 10/21/2024 2:03 PM CDT SCAN - RADIOLOGY/IMAGING 10/21/2024 2:03 PM CDT documented in this encounter Results * SCAN - RADIOLOGY/IMAGING (10/21/2024 2:03 PM CDT) Anatomical Region Laterality Modality Other us Albino Bull MD Final Result * SCAN - RADIOLOGY/IMAGING (10/21/2024 2:03 PM CDT) Anatomical Region Laterality Modality Other us Albino Bull MD Final Result documented in this encounter Visit Diagnoses Not on filedocumented in this encounter Care Teams Orchestra Leader Relationship Specialty Start Date End Date Albino Bull MD [id number] [place] [address] PCP - General Internal Medicine 12/12/20 documented as of this encounter
--- OUTSIDE RECORDS SUMMARY | 2024-10-21 14:37 | XMS_ITS | CONTINUITY OF CARE DOCUMENT ---
Author Name liza de jesus Address Unknown Organization [facility] Address [address] [place] [address] Phone [phone] Care Team Providers Care Public Relations Senior Associate Name Role Phone liza de jesus Unavailable Unavailable INSURANCE PROVIDERS Payer name Policy type / Coverage type [place] red republican ID [facility] Other [id number]
--- OUTSIDE RECORDS SUMMARY | 2024-10-21 14:37 | XMS_ITS | Clinical Summary ---
Author Organization [facility] Address [address] 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
--- OUTSIDE RECORDS SUMMARY | 2024-10-21 14:37 | XMS_ITS | Encounter Summary ---
Author Organization [facility] Address [address] 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
--- OUTSIDE RECORDS SUMMARY | 2024-10-21 14:37 | XMS_ITS | Patient Health Summary ---
Author Organization [facility] Address [address] [place] [address] Care Team Providers Care Supervisor Agricultural Education Name Role Phone Albino Bull MD Primary Care Provider [phone] Note from [facility],non-owned Affiliates and Associated Physician Practices is amultiple site organization consisting of ambulatory clinics and hospital sitesin [place], [place], [place] and [place]. This disclosure is being madepursuant to the Care Everywhere program and may not contain all information available regarding this patient. Last updated 18.[facility] Allergies * Latex(Urticaria) -Medium Criticality * Codeine(Rash) -Medium Criticality Immunizations * INFLUENZA VACCINE, HIGH-DOSE, QUADR. (FLUZONE HIGH-DOSE QUADRIVALENT; 65Y+), 0.7 ML (HD-IIV4)(Given 05/18/2019) Social History Tobacco Use Types Packs/Day Years Used Date Smoking Tobacco: Never Assessed Sex and Gender Information Value Date Recorded Sex Assigned at Not on file Gender Identity Not on file Sexual Orientation Not on file Care Teams Supervisor Agricultural Education Relationship Specialty Start Date End Date Albino Bull MD PCP - General 08/17/19
--- OUTSIDE RECORDS SUMMARY | 2024-10-21 14:37 | XMS_ITS | Clinical Summary ---
Author Organization [facility] [address] Address [address] [place] [address] Care Team Providers Care Electric Frying Pan Repairer Name Role Phone Albino Bull MD Primary Care Provider [phone] Allergies Active Allergy Reactions Criticality Noted Date [...] Take 400 mg by mouth daily Active multivit-wrapper layer and examiner soft work es-hikf-ikzeim tablet Take 1 tablet by mouth daily [...] Encounters Date Type Department Care Team Description 10/21/2024 Orders Only [facility] [address] [facility] [address] [place] [address] Albino Bull MD 10/18/2024 Telephone [facility] [address] [place] [phone] Albino Bull MD Vertigo 09/12/2024 Telephone [facility] [address] [place] [phone] Albino Bull MD Pain 08/24/2024 10:00 AM [employer] AIRCRAFT TECHNICIAN - 08/24/2024 11:59 PM TARGET AIRCRAFT TECHNICIAN Hospital Encounter [facility] [place] [facility] ([facility]) [address] [place] [id number] Injury of head, initial encounter Discharge Disposition: Discharge to home or self care 08/24/2024 Telephone [facility] [address] [place] [phone] Richelle Soriano NP 08/24/2024 Orders Only [facility] [address] [place] [phone] Richelle Soriano NP Injury of head, initial encounter (Primary Dx) 08/23/2024 5:35 PM TARGET AIRCRAFT TECHNICIAN Lab [facility] ([facility]) [address] [place] [phone] Fatigue, unspecified type; Urinary frequency; Hypothyroidism, unspecified type; Vitamin D deficiency 08/23/2024 1:30 PM TARGET AIRCRA[employer] TECHNICIAN Office Visit [facility] [address] [place] [phone] Richelle Soriano NP GERD without esophagitis (Primary [...] on file Legal Sex Female 11:30 PM TARGET AIRCRAFT TECHNICIAN Gender Identity Female 01/31/2023 2:08 PM CDT Sexual Orientation Straight 01/31/2023 2: 08 PM CDT Obstetrics History Last Filed Vital Signs Vital Sign Reading Time Taken Comments Blood Pressure 142/82 08/23/2024 1:52 PM TARGET AIRCRAFT TECHNICIAN Pulse 64 08/23/2024 1:52 PM TARGET AIRCRAFT TECHNICIAN Temperature 36.5 C (97.7 F) 11/04/2023 3:25 PM CDT Respiratory Rate 18 12/09/2023 1:27 PM CDT Oxygen Saturation 94% 08/23/2024 1:52 PM [employer]ARGET AIR[employer] TECHNICIAN Inhaled Oxygen Concentration - - Weight 97.1 kg (214 lb) 08/23/2024 1:52 PM TARGET AIR[employer]FT TECHNICIAN Height 147.3 cm (4' 10 ) 08/23/2024 1:52 PM TARGET AIR[employer]FT TECHNICIAN Body Mass Index 44.73 08/23/2024 1:52 PM TARGET AIR[employer]FT TECHNICIAN Plan of Treatment Health Maintenance Due Date [...] 05/18/2017, 06/10 Medical Devices Implanted Type Area Logistics Technician Device Identifier Shelf Expiration Date Model / Serial / Lot [employer] Vectris 5mm 60cm 1x8 Electrode Mri Lead Neurostimulator [id number] - [id number] Implanted:Qty: 1 on 11/04/2023 by Loc Kramer MD at [facility] Left: Back [employer] 09/29/2027 [id number] / / [id number] [employer] Vectris 5mm 60cm 1x8 Electrode Mri Lead Neurostimulator [id number] - [id number] Implanted:Qty: 1 on 11/04/2023 by Loc Kramer MD at [facility] Left: Back [employer] 10/07/2027 [id number] / / [id number] [employer] Neurostimulator Implantable Chronic Pain [id number] - [id number] - [id number] Implanted:Qty: 1 on 11/04/2023 by Loc Kramer MD at [facility] Left: Back [employer] 09/23/2024 [id number] / [id number] / [employer] Envelope Absrb 2.7x2.5in Antibacterial Tyrx Medium Strl [id number] - [id number] Implanted:Qty: 1 on 11/04/2023 by Loc Kramer MD at [facility] Left: Back [employer] 07/21/2024 [id number] / / [id number] Procedures Procedure Name Priority Date/Time Associated Diagnosis Comments SCAN - RADIOLOGY/IMAGING 10/21/2024 2:03 PM CDT SCAN - RADIOLOGY/IMAGING 10/21/2024 2:[address] HEAD WO CONTRAST Schedule Routine, Read Routine (OP Routine) 08/24/2024 10:48 AM TARGET AIRCRAFT TECHNICIAN Injury of head, initial encounter EGFR Routine 08/23/2024 3:02 PM TARGET AIR[employer]FT TECHNICIAN Fatigue, unspecified type DIFFERENTIAL AUTO Routine 08/23/2024 3:0 2 PM [employer]ARGET AIR[employer]FT TECHNICIAN Fatigue, unspecified type CBC WITH AUTO DIFFERENTIAL Routine 08/23/2024 3:02 PM TARGET AIRCRAFT TECHNICIAN Fatigue, unspecified type COMPREHENSIVE METABOLIC PANEL Routine 08/23/2024 3:02 PM TARGET AIRCRAFT TECHNICIAN Fatigue, unspecified type VITAMIN D 25 HYDROXY Routine 08/23/2024 3:02 PM TARGET AIRCRAFT TECHNICIAN Vitamin D deficiency THYROID FUNCTION CASCADE Routine 08/23/2024 3:02 PM TARGET AIR[employer]FT TECHNICIAN Hypothyroidism, unspecified type VITAMIN B12 Routine 08/23/2024 3:02 PM TARGET AIRCRAFT TECHNICIAN Fatigue, unspecified type URINALYSIS AND REFLEX TO MICROSCOPIC AND CULTURE Routine 08/23/2024 3:02 PM TARGET AIRCRAFT TECHNICIAN Urinary frequency DEXA AXIAL SKELETON BONE DENSITY 1 OR MORE SITES Schedule Routine, Read Routine (OP Routine) 03/13/2023 9:53 AM CDT Post-menopausal from Last 3 Months or Most Recently Relevant to Health Maintenance Results * SCAN - RADIOLOGY/IMAGING (10/21/2024 2:03 PM CDT) Anatomical Region Laterality Modality Other us Albino Bull MD Final Result * SCAN - RADIOLOGY/IMAGING (10/21/2024 2:03 PM CDT) Anatomical Region Laterality Modality Other us Albino Bull MD Final Result * CT Head WO Contrast (08/24/2024 10:48 AM TARGET AIRCRAFT TECHNICIAN) Anatomical Region Laterality Modality Head and Neck N/A Computed Tomogra phy 08/24/2024 11:0 0 AM TARGET AIRCRAFT TECHNICIAN Impressions 08/24/2024 11:00 AM TARGET AIRCRAFT TECHNICIAN Subcentimeter calcification within the right midbrain. This could be dystrophic or related to vascular malformation or underlying lesion. Further evaluation with MR brain or correlation with outside prior head CT is recommended. Electronically signed by: Argentina Keenan M.D. Narrative 08/24/2024 11:00 AM TARGET AIRCRAFT TECHNICIAN EXAMINATION: CT head without contrast HISTORY: Fall [...] recommended. Electronically signed by: Argentina Keenan M.D. us Richelle Soriano NP IMG CT PROCEDURES Final Resul t * (ABNORMAL) eGFR (08/23/2024 3:02 PM TARGET AIR[employer]FT TECHNICIAN) eGFR 51(L) >=60 mL/min/1. 73 m2 Comment: [...] last reviewed 2021. Blood 08/23/2024 3:02 PM TARGET AIRCRAFT TECHNICIAN 08/23/2024 4:35 PM TARGET AIRCRAFT TECHNICIAN us Richelle Soriano NP LAB BLOOD ORDERABLES Final Re sult [facility] [place] [address] * (ABNORMAL) Differential, auto (08/23/2024 3:02 PM TARGET AIRCRAFT TECHNICIAN) Neutrophil abs 5.0 1.5 - 6.5 K/cumm Imm gran abs 0.0 0.0 - 0.1 K/cumm [facility] Lymphocyte abs 3.7(H) 0.8 - 3.3 K/cumm [facility] Monocyte abs 0.7 0.2 - 0.8 K/cumm [facility] Eosinophil abs 0.3 0.0 - 0.5 K/cumm [facility] Basophil abs 0.1 0.0 - 0.1 K/cumm [facility] Neutrophil pct 50.5 % [facility] Comment: Interpretive Data Percent cell count reference ranges are not reported, since discordance with absolute values may lead to misinterpretation of CBC data. Current Interpretive Data was last revised on 2017. Imm gran pct 0.2 % [facility] Comment: Interpretive Data Percent cell count reference ranges are not reported, since discordance with absolute values may lead to misinterpretation of CBC data. Current Interpretive Data was last revised on 2017. Lymphocyte pct 38.1 % [facility] Comment: Interpretive Data Percent cell count reference ranges are not reported, since discordance with absolute values may lead to misinterpretation of CBC data. Current Interpretive Data was last revised on 2017. Monocyte pct 7.4 % [facility] Comment: Interpretive Data Percent cell count reference ranges are not reported, since discordance with absolute values may lead to misinterpretation of CBC data. Current Interpretive Data was last revised on 2017. Eosinophil pct 2.9 % [facility] Comment: Interpretive Data Percent cell count reference ranges are not reported, since discordance with absolute values may lead to misinterpretation of CBC data. Current Interpretive Data was last revised on 2017. Basophil pct 0.9 % [facility] Comment: Interpretive Data Percent cell count reference ranges are not reported, since discordance with absolute values may lead to misinterpretation of CBC data. Current Interpretive Data was last revised on 2017. Blood 08/23/2024 3:02 PM TARGET AIRCRAFT TECHNICIAN 08/23/2024 4:18 PM TARGET AIRCRAFT TECHNICIAN Richelle Soriano [facility] [facility] LAB BLOOD ORDERABLES Final Re sult Performing Organization Address [facility] Co [place] [address] * Thyroid Function Camp (08/23/2024 3:02 PM TARGET AIRCRAFT TECHNICIAN) TSH 2.29 0.30 - 4.20 mcIUnit/mL Blood 08/23/2024 3:02 PM TARGET AIRCRAFT TECHNICIAN 08/23/2024 4:18 PM TARGET AIRCRAFT TECHNICIAN Richelle Soriano INS[employer] LAB BLOOD ORDERABLES Final Re sult Performing Organization Address [facility] [place] [address] * Urinalysis reflex to microscopic and culture Urine (08/23/2024 3:02 PM TARGET AIRCRAFT TECHNICIAN) Color, ur Straw Yellow Clarity, ur Clear Clear [facility] Specific gravity, ur 1.025 1.003 - 1.030 [facility] pH, urine 5.5 [facility] Comment: Interpretive Data U rine pH is affected by diet, medications, systemic acid-base disturbances, and renal tubular function. pH may affect urinary stone formation. For example, urine pH below 6.0 may help reduce the tendency for calcium phosphate stones and pH greater than 6.0 may reduce the tendency for uric acid stone formation. Source: [facility] Perfect Audience Current Interpretive Data was last revised on 2017 Protein, ur ql Trace Negative [facility] Glucose, ur ql Negative Negative [facility] Ketones, ur Negative Negative [facility] Bilirubin, ur Negative Negative [facility] Blood, ur Negative Negative [facility] Urobilinogen, ur <2.0 <2.0 mg/dL [facility] Nitrite, ur Negative Negative [facility] Leukocyte esterase, ur Negative Negative [facility] UA reflex comment Reflex conditions for microscopic UA and culture not met. [facility] Urine 08/23/2024 3:02 PM TARGET AIRCRAFT TECHNICIAN 08/23/2024 4:18 PM TARGET AIRCRAFT TECHNICIAN us Richelle Soriano [facility] LAB MICROBIOLOGY - GENERAL OR DERABLES Final Result Performing Organization Address [facility]/ZIP Co de Phone Number [facility] Department [place] [address] * (ABNORMAL) CBC with auto differential (08/23/2024 3:02 PM TARGET AIRCRAFT TECHNICIAN) WBC 9.8 3.8 - 9.9 K/cumm Hgb 12.5 11.9 - 15.5 g/dL [facility] Hct 39.7 35.6 - 45.5 % [facility] Plt 248 150 - 400 K/cumm [facility] MPV 13.0(H) 9.1 - 12.3 fL [facility] RBC 4.22 3.90 - 5.20 M/cumm [facility] MCV 94.1 81.3 - 96.4 fL [facility] MCH 29.6 27.1 - 33.3 pg [facility] MCHC 31.5(L) 32.3 - 35.7 g/dL [facility] RDW CV 15.2(H) 11.1 - 14.9 % [facility] RDW SD 52.4(H) 35.7 - 48.1 fL [facility] NRBC abs 0.00 0.00 - 0.01 K/cumm [facility] Blood 08/23/2024 3:02 PM TARGET AIRCRAFT TECHNICIAN 08/23/2024 4:18 PM TARGET AIRCRAFT TECHNICIAN us Richelle Soriano [employer] [facility] LAB BLOOD ORDERABLES Final Re sult Performing Organization Address [facility]/ZIP Co de Phone Number [facility] Department [place] [address] * Vitamin D 25 hydroxy (08/23/2024 3:02 PM TARGET AIRCRAFT TECHNICIAN) [facility] Vitamin D 25-OH 76 30 - 80 ng/mL Blood 08/23/2024 3:02 PM TARGET AIRCRAFT TECHNICIAN 08/23/2024 4:18 PM TARGET AIRCRAFT TECHNICIAN Richelle Soriano INS[employer] LAB BLOOD ORDERABLES Final Re sult Performing Organization Address [facility] de Phone Number [facility] Department [place] [address] * Vitamin B12 (08/23/2024 3:02 PM TARGET AIRCRAFT TECHNICIAN) [facility] Vitamin B12 846 230 - 1,250 pg/mL Blood 08/23/2024 3:02 PM TARGET AIRCRAFT TECHNICIAN 08/23/2024 4:18 PM TARGET AIRCRAFT TECHNICIAN Richelle Soriano INS[employer] LAB BLOOD ORDERABLES Final Re sult Performing Organization Address [facility] de Phone Number [facility] Department [place] [address] * (ABNORMAL) Comprehensive metabolic panel (08/23/2024 3:02 PM TARGET AIRCRAFT TECHNICIAN) [facility] Sodium 142 135 - 145 mmol/L Potassium, pl 4.5 3.3 - 4.9 mmol/L [facility] Chloride 103 97 - 110 mmol/L [facility] CO2 28 22 - 32 mmol/L [facility] Anion gap 11 2 - 15 mmol/L [facility] BUN 26(H) 6 - 25 mg/dL [facility] Creatinine 1.08 0.60 - 1.10 mg/dL [facility] Glucose 87 70 - 199 mg/dL [facility] Comment: Interpretive Data Fasting glucose >/= [...] Calcium 9.7 8.5 - 10.3 mg/dL [facility] Bilirubin, total 0.3 0.1 - 1.2 mg/dL [facility] Protein, pl 7.7 6.5 - 8.5 g/dL [facility] Albumin 4.5 3.5 - 5.0 g/dL [facility] Alk phos 112 40 - 130 Units/L [facility] ALT 12 7 - 45 Units/L [facility] AST 21 10 - 45 Units/L [facility] Blood 08/23/2024 3:02 PM TARGET AIRCRAFT TECHNICIAN 08/23/2024 4:18 PM TARGET AIRCRAFT TECHNICIAN us Richelle Soriano [facility] LAB BLOOD ORDERABLES Final Re sult [facility] [place] [address] * Dexa Axial Skeleton Bone Density 1 or 2 Site (03/13/2023 9:53 AM CDT) Anatomical Region Laterality Modality Body N/A Radiographic Liz ging Narrative 03/16/2023 8:19 AM CDT Patient Name: Malathi Sanchez Date of : 1940 Date of scan: 03/13/2023 Bone mineral density was performed on a HoloCooleaf Discovery Densitometer. Based on machine cross-calibration and [...] by the International Society of Clinical Densitometry. [id number] Albino Bull MD [facility] DXA PROCEDURES Final Resu lt from Last 3 Months or Most Recently Relevant to Health Maintenance Insurance AARP MEDICARE MEDICARE [facility] MEDICARE [facility] MEDICARE [facility] Care Teams Electric Frying Pan Repairer Relationship Specialty Start Date End Date Albino Bull MD [address] [facility] [address] [place] [address] PCP - General Internal Medicine 12/12/20
--- OUTSIDE RECORDS SUMMARY | 2024-10-21 14:37 | XMS_ITS | Clinical Summary ---
Author Organization [facility] Address [address] [place] [address] Care Team Providers Care Chief Client Officer Name Role Phone Albino Bull MD Primary Care Provider [phone] Source Comments [facility],non-owned Affiliates and Associated Physician Practices is amultiple site organization consisting of ambulatory clinics and hospital sitesin [place], [place], [place] and [place]. This disclosure is being madepursuant to the Care Everywhere program and may not contain all information available regarding this patient. Last updated 18.[facility] Allergies Active Allergy Reactions Criticality Noted Date [...] age to complete this topic Care Teams Chief Client Officer Relationship Specialty Start Date End Date Albino Bull MD PCP - General 08/17/19
--- OUTSIDE RECORDS SUMMARY | 2024-10-21 14:37 | XMS_ITS | Referral Summary ---
Author Organization [facility] Address [address] [place] [address] Care Team Providers Care Slag Worker Name Role Phone Albino Bull MD Primary Care Provider [phone] Source Comments [facility],non-owned Affiliates and Associated Physician Practices is amultiple site organization consisting of ambulatory clinics and hospital sitesin [place], [place], [place] and [place]. This disclosure is being madepursuant to the Care Everywhere program and may not contain all information available regarding this patient. Last updated 18.[facility] [employer] Allergies Active Allergy Reactions Criticality Noted Date [...] of Treatment Not on file Care Teams Slag Worker Relationship Specialty Start Date End Date Albino Bull MD PCP - General 08/17/19
--- OUTSIDE RECORDS SUMMARY | 2024-10-21 14:37 | XMS_ITS | Encounter Summary ---
Author Organization [facility] Address [address] [place] [address] Care Team Providers Care Claims Representative Name Role Phone Albino Bull MD Primary Care Provider [phone] Reason for Referral * Consultation (Routine) - Authorized Specialty Diagnoses / Procedures Referred By Contac t Referred To Contact Otolaryngology Diagnoses Vertigo Albino Bull MD [address] [facility] [place] [address] Phone: tel: fax: [facility] (All Locations) Referral ID Status Reason Start Date Expiration Date Visits Requested Visits Authorized [id number] Authorized Specialty Services Required 10/20/2024 11/19/2025 1 1 Question Answer Please select the performing region: [facility] (All Locations) [167] # of visits: 1 Reason for Visit * Reason Onset Date Comments Vertigo 10/18/2024 Encounter Details Date Type Department Care Team (Late st Contact Info) Description 10/18/2024 [facility] [address] [facility] [address] 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 Its been almost a week now. [phone] * Telephone Encounter - Tameka Luque - [...] dosage of insulin/Coumadin:.no Last office visit:.08/2024 Preferred [phone] Confirm pharmacy[facility] Allergies reviewed:. Codeine, latex, morphine, [...] giddiness documented in this encounter Care Teams Claims Representative Relationship Specialty Start Date End Date Albino Bull MD [address] [place] [address] PCP - General Internal Medicine 12/12/20 documented as of this encounter
--- OUTSIDE RECORDS SUMMARY | 2024-10-21 14:37 | XMS_ITS | Referral Summary ---
Author Organization [facility] [address] Address [address] [place] [address] Care Team Providers Care Background Check Coordinator Name Role Phone Albino Bull MD Primary Care Provider Encounters Date Type Department Care Team Description 10/21/2024 Orders Only [facility] [address] [phone] Albino Bull MD 10/18/2024 [facility] [address] [phone] Albino Bull MD Vertigo 09/12/2024 [facility] [address] [phone] Albino Bull MD Pain 08/24/2024 [facility] [address] [phone] Richelle Soriano NP 08/24/2024 Orders Only [facility] [id number] [place] [address] Richelle Soriano NP Injury of head, initial encounter (Primary Dx) 08/24/2024 10:00 AM PAMPHLET DISTRIBUTOR - 08/24/2024 11:59 PM PAMPHLET DISTRIBUTOR Hospital Encounter [facility] [address] [place] [address] Injury of head, initial encounter Discharge Disposition: Discharge to home or self care 08/23/2024 5:35 PM PAMPHLET DISTRIBUTOR Lab [facility] [address] [place] [phone] Fatigue, unspecified type; Urinary frequency; Hypothyroidism, unspecified type; Vitamin D deficiency 08/23/2024 1:30 PM PAMPHLET DISTRIBUTOR Office Visit [facility] [address] [facility] [address] [facility] [place] [phone] Richelle Soriano NP GERD without esophagitis (Primary [...] Take 400 mg by mouth daily Active multivit-trade mark examiner na-eoqv-[id number] tablet Take 1 tablet by mouth daily [...] on file Legal Sex Female 11:30 PM PAMPHLET DISTRIBUTOR Gender Identity Female 01/31/2023 2:08 PM CDT Sexual Orientation Straight 01/31/2023 2: 08 PM CDT Last Filed Vital Signs Vital Sign Reading Time Taken Comments Blood Pressure 142/82 08/23/2024 1:52 PM PAMPHLET DISTRIBUTOR Pulse 64 08/23/2024 1:52 PM PAMPHLET DISTRIBUTOR Temperature 36.5 C (97.7 F) 11/04/2023 3:25 PM CDT Respiratory Rate 18 12/09/2023 1:27 PM CDT Oxygen Saturation 94% 08/23/2024 1:52 PM PAMPHLET DISTRIBUTOR Inhaled Oxygen Concentration - - Weight 97.1 kg (214 lb) 08/23/2024 1:52 PM PAMPHLET DISTRIBUTOR Height 147.3 cm (4' 10 ) 08/23/2024 1:52 PM PAMPHLET DISTRIBUTOR Body Mass Index 44.73 08/23/2024 1:52 PM PAMPHLET DISTRIBUTOR Plan of Treatment Not on file Medical Devices Implanted Type Area Switch Maker Device Identifier Shelf Expiration Date Model / Serial / Lot [employer] Vectris 5mm 60cm 1x8 Electrode Mri Lead Neurostimulator [id number] - [id number] Implanted:Qty: 1 on 11/04/2023 by Loc Kramer MD at [facility] Left: Back [employer] 09/29/2027 [id number] / / [id number] [employer] Vectris 5mm 60cm 1x8 Electrode Mri Lead Neurostimulator [id number] - [id number] Implanted:Qty: 1 on 11/04/2023 by Loc Kramer MD at [facility] Left: Back [employer] 10/07/2027 [id number] / / [id number] [employer] Neurostimulator Implantable Chronic Pain [id number] - [id number] - [id number] Implanted:Qty: 1 on 11/04/2023 by Loc Kramer MD at [facility] Left: Back [employer] 09/23/2024 [id number] / [id number] / [employer] Envelope Absrb 2.7x2.5in Antibacterial Tyrx Medium Strl [id number] - [id number] Implanted:Qty: 1 on 11/04/2023 by Loc Kramer MD at [facility] Left: Back [employer] 07/21/2024 [id number] / / [id number] Procedures Procedure Name Priority Date/Time Associated Diagnosis Comments SCAN - RADIOLOGY/IMAGING 10/21/2024 2:03 PM CDT SCAN - RADIOLOGY/IMAGING 10/21/2024 2:[address] HEAD WO CONTRAST Schedule Routine, Read Routine (OP Routine) 08/24/2024 10:48 AM PAMPHLET DISTRIBUTOR Injury of head, initial encounter EGFR Routine 08/23/2024 3:02 PM PAMPHLET DISTRIBUTOR Fatigue, unspecified type DIFFERENTIAL AUTO Routine 08/23/2024 3:0 2 PM PAMPHLET DISTRIBUTOR Fatigue, unspecified type CBC WITH AUTO DIFFERENTIAL Routine 08/23/2024 3:02 PM PAMPHLET DISTRIBUTOR Fatigue, unspecified type COMPREHENSIVE METABOLIC PANEL Routine 08/23/2024 3:02 PM PAMPHLET DISTRIBUTOR Fatigue, unspecified type VITAMIN D 25 HYDROXY Routine 08/23/2024 3:02 PM PAMPHLET DISTRIBUTOR Vitamin D deficiency THYROID FUNCTION CASCADE Routine 08/23/2024 3:02 PM PAMPHLET DISTRIBUTOR Hypothyroidism, unspecified type VITAMIN B12 Routine 08/23/2024 3:02 PM PAMPHLET DISTRIBUTOR Fatigue, unspecified type URINALYSIS AND REFLEX TO MICROSCOPIC AND CULTURE Routine 08/23/2024 3:02 PM PAMPHLET DISTRIBUTOR Urinary frequency DEXA AXIAL SKELETON BONE DENSITY [...] CT Head WO Contrast (08/24/2024 10:48 AM PAMPHLET DISTRIBUTOR) Anatomical Region Laterality Modality Head and Neck N/A Computed Tomogra phy 08/24/2024 11:0 0 AM PAMPHLET DISTRIBUTOR Impressions 08/24/2024 11:00 AM PAMPHLET DISTRIBUTOR Subcentimeter calcification within the right midbrain. This could be dystrophic or related to vascular malformation or underlying lesion. Further evaluation with MR brain or correlation with outside prior head CT is recommended. Electronically signed by: Argentina Keenan M.D. Narrative 08/24/2024 11:00 AM PAMPHLET DISTRIBUTOR EXAMINATION: CT head without contrast HISTORY: Fall [...] signed by: Argentina Keenan M.D. Richelle Soriano ACCOUNT RELATIONSHIP MANAGER IMG CT PROCEDURES Final Resul t * (ABNORMAL) eGFR (08/23/2024 3:02 PM PAMPHLET DISTRIBUTOR) eGFR 51(L) >=60 mL/min/1. 73 m2 Comment: [...] last reviewed 2021. Blood 08/23/2024 3:02 PM PAMPHLET DISTRIBUTOR 08/23/2024 4:35 PM PAMPHLET DISTRIBUTOR us Richelle Soriano ACCOUNT RELATIONSHIP MANAGER LAB BLOOD ORDERABLES Final Re sult [facility] Department [place] [address] * (ABNORMAL) Differential, auto (08/23/2024 3:02 PM PAMPHLET DISTRIBUTOR) Neutrophil abs 5.0 1.5 - 6.5 K/cumm Imm gran abs 0.0 0.0 - 0.1 K/cumm [facility] Lymphocyte abs 3.7(H) 0.8 - 3.3 K/cumm [facility] Monocyte abs 0.7 0.2 - 0.8 K/cumm [facility] Eosinophil abs 0.3 0.0 - 0.5 K/cumm [facility] Basophil abs 0.1 0.0 - 0.1 K/cumm [facility] Neutrophil pct 50.5 % [facility] Comment: Interpretive Data Percent cell count reference ranges are not reported, since discordance with absolute values may lead to misinterpretation of CBC data. Current Interpretive Data was last revised on 2017. Imm gran pct 0.2 % [facility] Comment: Interpretive Data Percent cell count reference ranges are not reported, since discordance with absolute values may lead to misinterpretation of CBC data. Current Interpretive Data was last revised on 2017. Lymphocyte pct 38.1 % [facility] Comment: Interpretive Data Percent cell count reference ranges are not reported, since discordance with absolute values may lead to misinterpretation of CBC data. Current Interpretive Data was last revised on 2017. Monocyte pct 7.4 % [facility] Comment: Interpretive Data Percent cell count reference ranges are not reported, since discordance with absolute values may lead to misinterpretation of CBC data. Current Interpretive Data was last revised on 2017. Eosinophil pct 2.9 % [facility] Comment: Interpretive Data Percent cell count reference ranges are not reported, since discordance with absolute values may lead to misinterpretation of CBC data. Current Interpretive Data was last revised on 2017. Basophil pct 0.9 % [place] [facility] Comment: Interpretive Data Percent cell count reference ranges are not reported, since discordance with absolute values may lead to misinterpretation of CBC data. Current Interpretive Data was last revised on 2017. Blood 08/23/2024 3:02 PM PAMPHLET DISTRIBUTOR 08/23/2024 4:18 PM PAMPHLET DISTRIBUTOR us Richelle Soriano ACCOUNT RELATIONSHIP MANAGER LAB BLOOD ORDERABLES Final Re sult Performing Organization Address [facility] Co de Phone Number [facility] Department [place] [address] * Thyroid Function [place] (08/23/2024 3:02 PM PAMPHLET DISTRIBUTOR) Pathologist [facility] TSH 2.29 0.30 - 4.20 mcIUnit/mL Blood 08/23/2024 3:02 PM PAMPHLET DISTRIBUTOR 08/23/2024 4:18 PM PAMPHLET DISTRIBUTOR Richelle Soriano ACCOUNT RELATIONSHIP MANAGER LAB BLOOD ORDERABLES Final Re sult Performing Organization Address [facility] Co de Phone Number [facility] [place] [address] * Urinalysis reflex to microscopic and culture Urine (08/23/2024 3:02 PM PAMPHLET DISTRIBUTOR) Color, ur Straw Yellow Clarity, ur Clear Clear [facility] Specific gravity, ur 1.025 1.003 - 1.030 [facility] pH, urine 5.5 [facility] Comment: Interpretive Data U rine pH is affected by diet, medications, systemic acid-base disturbances, and renal tubular function. pH may affect urinary stone formation. For example, urine pH below 6.0 may help reduce the tendency for calcium phosphate stones and pH greater than 6.0 may reduce the tendency for uric acid stone formation. Source: [facility] Current Interpretive Data was last revised on 2017 Protein, ur ql Trace Negative [facility] Glucose, ur ql Negative Negative [facility] Ketones, ur Negative Negative [facility] Bilirubin, ur Negative Negative [facility] Blood, ur Negative Negative [facility] Urobilinogen, ur <2.0 <2.0 mg/dL [facility] Nitrite, ur Negative Negative [facility] Leukocyte esterase, ur Negative Negative [facility] UA reflex comment Reflex conditions for microscopic UA and culture not met. [facility] Urine 08/23/2024 3:02 PM PAMPHLET DISTRIBUTOR 08/23/2024 4:18 PM PAMPHLET DISTRIBUTOR us Richelle Soriano NP LAB MICROBIOLOGY - GENERAL OR DERABLES Final Result [facility] Department [place] [address] * (ABNORMAL) CBC with auto differential (08/23/2024 3:02 PM PAMPHLET DISTRIBUTOR) WBC 9.8 3.8 - 9.9 K/cumm Hgb 12.5 11.9 - 15.5 g/dL [facility] Hct 39.7 35.6 - 45.5 % [facility] Plt 248 150 - 400 K/cumm [facility] MPV 13.0(H) 9.1 - 12.3 fL [facility] RBC 4.22 3.90 - 5.20 M/cumm [facility] MCV 94.1 81.3 - 96.4 fL [facility] MCH 29.6 27.1 - 33.3 pg [facility] MCHC 31.5(L) 32.3 - 35.7 g/dL [facility] RDW CV 15.2(H) 11.1 - 14.9 % [facility] RDW SD 52.4(H) 35.7 - 48.1 fL [facility] NRBC abs 0.00 0.00 - 0.01 K/cumm [facility] Blood 08/23/2024 3:02 PM PAMPHLET DISTRIBUTOR 08/23/2024 4:18 PM PAMPHLET DISTRIBUTOR Richelle Soriano ACCOUNT RELATIONSHIP MANAGER LAB BLOOD ORDERABLES Final Re sult Performing Organization Address [facility] Co de Phone Number [facility] [employer] [place] [address] * Vitamin D 25 hydroxy (08/23/2024 3:02 PM PAMPHLET DISTRIBUTOR) [facility] Vitamin D 25-OH 76 30 - 80 ng/mL Blood 08/23/2024 3:02 PM PAMPHLET DISTRIBUTOR 08/23/2024 4:18 PM PAMPHLET DISTRIBUTOR Richelle Soriano ACCOUNT RELATIONSHIP MANAGER LAB BLOOD ORDERABLES Final Re sult Performing Organization Address [facility] Co de Phone Number [facility] [employer] [place] [address] * Vitamin B12 (08/23/2024 3:02 PM PAMPHLET DISTRIBUTOR) [facility] Vitamin B12 846 230 - 1,250 pg/mL Blood 08/23/2024 3:02 PM PAMPHLET DISTRIBUTOR 08/23/2024 4:18 PM PAMPHLET DISTRIBUTOR Richelle Soriano ACCOUNT RELATIONSHIP MANAGER LAB BLOOD ORDERABLES Final Re sult Performing Organization Address [facility] [place] [address] * (ABNORMAL) Comprehensive metabolic panel (08/23/2024 3:02 PM PAMPHLET DISTRIBUTOR) [facility] Sodium 142 135 - 145 mmol/L Potassium, pl 4.5 3.3 - 4.9 mmol/L [facility] Chloride 103 97 - 110 mmol/L [facility] CO2 28 22 - 32 mmol/L [facility] Anion gap 11 2 - 15 mmol/L [facility] BUN 26(H) 6 - 25 mg/dL [facility] Creatinine 1.08 0.60 - 1.10 mg/dL [facility] Glucose 87 70 - 199 mg/dL [facility] Comment: Interpretive Data Fasting glucose >/= 126 [...] classification and Diagnosis of Diabetes Diabetes Care 202; 46: S19-S40. Current interpretive data was last revised 2022. Calcium 9.7 8.5 - 10.3 mg/dL [facility] Bilirubin, total 0.3 0.1 - 1.2 mg/dL [facility] Protein, pl 7.7 6.5 - 8.5 g/dL [facility] Albumin 4.5 3.5 - 5.0 g/dL [facility] Alk phos 112 40 - 130 Units/L [facility] ALT 12 7 - 45 Units/L [facility] AST 21 10 - 45 Units/L [facility] Blood 08/23/2024 3:02 PM PAMPHLET DISTRIBUTOR 08/23/2024 4:18 PM PAMPHLET DISTRIBUTOR Richelle Soriano NP LAB BLOOD ORDERABLES Final Re sult [facility] Department [place] [address] * Dexa Axial Skeleton Bone Density 1 [...] by the International Society of Clinical Densitometry. [id number] Albino Bull MD IMG DXA PROCEDURES Final Resu lt from Last 3 Months or Most Recently Relevant to Health Maintenance Insurance [facility] MEDICARE MEDICARE [facility] MEDICARE [facility] MEDICARE AARP Care Teams Background Check Coordinator Relationship Specialty Start Date End Date Albino Bull MD [address] [place] [address] PCP - General Internal Medicine 12/12/20
--- NOTE | 2024-10-21 14:49 | PC.NURSE ---
Patient to CT in stretcher.
== END 2024-10-21 18:02 | disposition home or self-care (01) ==
PROVIDERS: Physician Assistant; Emergency Provider Student in an Organized Health Care Education/Training Program; PCP Internal Medicine
DX: H81.10 Benign paroxysmal vertigo, unspecified ear (principal); M25.552 Pain in left hip; R07.81 Pleurodynia; W18.30XA Fall on same level, unspecified, initial encounter; Z79.82 Long term (current) use of aspirin; Z86.73 Personal history of transient ischemic attack (TIA), and cerebral infarction without residual deficits; K21.9 Gastro-esophageal reflux disease without esophagitis; I10 Essential (primary) hypertension
CPT/HCPCS: 36415; 70450; 70496; 70498; 71046; 71100; 73502; 80053; 85025; 93005; 96361; 96374; 99284; J3360; J7120; Q9967